=== PATIENT | female | born 1955 | race Two or more races ===

== ENCOUNTER 2018-06-25 09:29 | Inpatient (IN) | payer MEDICAID ==
[~2018-06-25] VITALS: Ht 165.1 cm; Wt 98.9 kg
[2018-06-25] MEDS ORDERED: Meclizine 25mg tab ORAL ONE (09:45)
[2018-06-25 09:53] VITALS: BP 180/100
[2018-06-25 10:04] LABS: ANION GAP 7 mmol/L (5-15); BLOOD UREA NITROGEN 23 mg/dL (7-18); CALCIUM 9.1 MG/DL (8.5-10.1); CARBON DIOXIDE 23 MMOL/L (21-32); CHLORIDE 105 MMOL/L (98-107); CREATININE 0.7 MG/DL (0.55-1.30); POTASSIUM 4.4 MMOL/L (3.5-5.1); SODIUM 135 MMOL/L (136-145)
[2018-06-25 10:11] LABS: ALANINE AMINOTRANSFERASE 47 U/L (12-78); ALBUMIN/GLOBULIN RATIO 0.7 (1.0-2.7); ALKALINE PHOSPHATASE 201 U/L (46-116); ASPARTATE AMINO TRANSFERASE 50 U/L (15-37); BILIRUBIN,TOTAL 0.8 MG/DL (0.2-1.0)
[2018-06-25 10:18] LABS: HEMATOCRIT 36.9 % (37.0-47.0); HEMOGLOBIN 11.7 G/DL (12.0-16.0); MEAN CORPUSCULAR VOLUME 84 FL (80-99); PLATELET COUNT 203 K/UL (150-450); RED BLOOD COUNT 4.39 M/UL (4.20-5.40); RED CELL DISTRIBUTION WIDTH 16.4 % (11.6-14.8); WHITE BLOOD COUNT 9.8 K/UL (4.8-10.8)
[2018-06-25 10:21] LABS: APPEARANCE,URINE CLEAR; BILIRUBIN, URINE NEGATIVE (NEGATIVE); COLOR,URINE PALE YELLOW; GLUCOSE, URINE (UA) 4+ (NEGATIVE); KETONES,URINE 3+ (NEGATIVE); LEUKOCYTE ESTERASE ,URINE NEGATIVE (NEGATIVE); NITRITE,URINE NEGATIVE (NEGATIVE); PH,URINE 6.5 (4.5-8.0); PROTEIN,URINE 1+ (NEGATIVE); UROBILINOGEN,URINE NORMAL MG/DL (0.0-1.0)
[2018-06-25 12:05] LABS: INR 1.2 (0.9-1.1)
[2018-06-25 12:19] VITALS: BP 122/53
[2018-06-25 12:40] VITALS: BP 124/60
[2018-06-25 13:50] VITALS: BP 135/59
--- NOTE | 2018-06-25 14:15 | Emergency Room Report ---
History of Present Illness General Chief Complaint: General Complaint Source: Patient Present Illness HPI Patient is a 62-year-old female presented after increased abdominal discomfort as well as dizziness. Patient prior history of diabetes. She reported having increased burning sensation to her upper abdomen. She reported had some increased coffee-ground emesis. The patient reported feeling somewhat lightheaded. The patient had not been having any diarrhea. Allergies: Coded Allergies: PENICILLINS (Unverified Allergy, Unknown, 06/25/18) Uncoded Allergies: pcn (Allergy, Unknown, 06/25/18) Patient History Past Medical History: see triage record Reviewed Nursing Documentation: PMH: Agreed; PSxH: Agreed Nursing Documentation-PMH Hx Diabetes: Yes Review of Systems All Other Systems: negative except mentioned in HPI Physical Exam Vital Signs Date Time Temp Pulse Resp B/P (MAP) Pulse Ox O2 Delivery O2 Flow Rate FiO2 06/25/18 09:36 97.8 98 16 180/100 98 Room Air 97.9 Sp02 EP Interpretation: reviewed, normal General Appearance: normal inspection, well appearing, no apparent distress, alert Head: atraumatic ENT: normal ENT inspection, hearing grossly normal, normal voice Neck: normal inspection, full range of motion, supple, no bony tend Respiratory: normal inspection, lungs clear, normal breath sounds, no respiratory distress, no retraction, no wheezing Cardiovascular #1: regular rate, rhythm, no edema Gastrointestinal: normal inspection, normal bowel sounds, non tender, soft, no guarding, no hernia Genitourinary: no CVA tenderness Musculoskeletal: normal inspection, back normal, normal range of motion Neurologic: normal inspection, alert, responsive, speech normal Psychiatric: normal inspection, judgement/insight normal, mood/affect normal Skin: normal inspection, normal color, no rash Medical Decision Making Diagnostic Impression: Primary Impression: Coffee ground emesis Additional Impressions: Dehydration GI bleed ER Course Patient presented for abdominal pain. Differential diagnoses included ischemic bowel, appendicitis, perforated viscus, abdominal aortic aneurysm, inferior myocardial infarction, viral gastroenteritis Because of complexity of patient's case laboratory testing and imaging studies were ordered. Laboratory testing showed evidence of anemia as well as elevated BUN/creatinine consistent with patient's recent upper GI bleeding. Patient started on IV fluids as well as IV acid blockers. Dr. Isabel Trejo was contacted for inpatient management due to panel physician Labs Test 06/25/18 09:40 06/25/18 10:05 06/25/18 11:28 White Blood Count 9.8 K/UL (4.8-10.8) Red Blood Count 4.39 M/UL (4.20-5.40) Hemoglobin 11.7 G/DL (12.0-16.0) Hematocrit 36.9 % (37.0-47.0) Mean Corpuscular Volume 84 FL (80-99) Mean Corpuscular Hemoglobin 26.6 PG (27.0-31.0) Mean Corpuscular Hemoglobin Concent 31.6 G/DL (32.0-36.0) Red Cell Distribution Width 16.4 % (11.6-14.8) Platelet Count 203 K/UL (150-450) Mean Platelet Volume 8.3 FL (6.5-10.1) Neutrophils (%) (Auto) % (45.0-75.0) Lymphocytes (%) (Auto) % (20.0-45.0) Monocytes (%) (Auto) % (1.0-10.0) Eosinophils (%) (Auto) % (0.0-3.0) Basophils (%) (Auto) % (0.0-2.0) Differential Total Cells Counted 100 Neutrophils % (Manual) 78 % (45-75) Lymphocytes % (Manual) 16 % (20-45) Monocytes % (Manual) 5 % (1-10) Eosinophils % (Manual) 1 % (0-3) Basophils % (Manual) 0 % (0-2) Band Neutrophils 0 % (0-8) Platelet Estimate Adequate Platelet Morphology Normal Red Blood Cell Morphology Normal Sodium Level 135 MMOL/L (136-145) Potassium Level 4.4 MMOL/L (3.5-5.1) Chloride Level 105 MMOL/L (98-107) Carbon Dioxide Level 23 MMOL/L (21-32) Anion Gap 7 mmol/L (5-15) Blood Urea Nitrogen 23 mg/dL (7-18) Creatinine 0.7 MG/DL (0.55-1.30) Estimat Glomerular Filtration Rate > 60 mL/min (>60) Glucose Level 294 MG/DL (74-106) Calcium Level 9.1 MG/DL (8.5-10.1) Total Bilirubin 0.8 MG/DL (0.2-1.0) Aspartate Amino Transf (AST/SGOT) 50 U/L (15-37) Alanine Aminotransferase (ALT/SGPT) 47 U/L (12-78) Alkaline Phosphatase 201 U/L (46-116) Troponin I 0.000 ng/mL (0.000-0.056) Total Protein 7.2 G/DL (6.4-8.2) Albumin 3.0 G/DL (3.4-5.0) Globulin 4.2 g/dL Albumin/Globulin Ratio 0.7 (1.0-2.7) Lipase 442 U/L (73-393) Urine Color Pale yellow Urine Appearance Clear Urine pH 6.5 (4.5-8.0) Urine Specific [place] 1.015 (1.005-1.035) Urine Protein 1+ (NEGATIVE) Urine Glucose (UA) 4+ (NEGATIVE) Urine Ketones 3+ (NEGATIVE) Urine Occult Blood 2+ (NEGATIVE) Urine Nitrite Negative (NEGATIVE) Urine Bilirubin Negative (NEGATIVE) Urine Urobilinogen Normal MG/DL (0.0-1.0) Urine Leukocyte Esterase Negative (NEGATIVE) Urine RBC 2-4 /HPF (0 - 2) Urine WBC 0-2 /HPF (0 - 2) Urine Squamous Epithelial Cells Moderate /LPF (NONE/OCC) Urine Bacteria Occasional /HPF (NONE) Prothrombin Time 12.3 SEC (9.30-11.50) Prothromb Time International Ratio 1.2 (0.9-1.1) Activated Partial Thromboplast Time 28 SEC (23-33) Last Vital Signs Date Time Temp Pulse Resp B/P (MAP) Pulse Ox O2 Delivery O2 Flow Rate FiO2 06/25/18 13:37 Room Air 06/25/18 12:40 98.4 93 20 124/60 96 98.4 Status: unchanged Disposition: ADMITTED INPATIENT Condition: Serious Referrals: NOT CHOSEN IPA/,REFERRING (PCP) Luciano Edmonds MD Jun 25, 2018 14:15
[2018-06-25] MEDS ORDERED: Acetaminophen 500mg (ES) tab ORAL PRN (15:00)
[2018-06-25 20:45] VITALS: BP 107/58
[2018-06-25] MEDS ORDERED: Pantoprazole Inj IVP SCH (22:15)
[2018-06-25 22:20] LABS: BASOPHILS % (AUTO) 0.9 % (0.0-2.0); EOSINOPHILS % (AUTO) 0.2 % (0.0-3.0); HEMATOCRIT 27.8 % (37.0-47.0); HEMOGLOBIN 8.9 G/DL (12.0-16.0); LYMPHOCYTES % (AUTO) 24.9 % (20.0-45.0); MEAN CORPUSCULAR VOLUME 84 FL (80-99); MONOCYTES % (AUTO) 9.7 % (1.0-10.0); NEUTROPHILS % (AUTO) 64.2 % (45.0-75.0); PLATELET COUNT 193 K/UL (150-450); RED CELL DISTRIBUTION WIDTH 16.2 % (11.6-14.8); WHITE BLOOD COUNT 15.4 K/UL (4.8-10.8)
[2018-06-25] MEDS ORDERED: Metoclopramide 10mg/2ml Inj IVP SCH (22:30)
[2018-06-25 22:40] VITALS: BP 90/72
[2018-06-26] VITALS (15 sets, daily range): BP systolic 99–139; BP diastolic 42–88
[2018-06-26] MEDS: Pantoprazole Inj IVP SCH ×3 (00:27→21:28)
[2018-06-26] MEDS: Acetaminophen 500mg (ES) tab ORAL PRN (02:43)
[2018-06-26 03:39] LABS: BASOPHILS % (AUTO) 0.5 % (0.0-2.0); HEMATOCRIT 26.2 % (37.0-47.0); HEMOGLOBIN 8.3 G/DL (12.0-16.0); LYMPHOCYTES % (AUTO) 23.4 % (20.0-45.0); MEAN CORPUSCULAR VOLUME 84 FL (80-99); MONOCYTES % (AUTO) 8.6 % (1.0-10.0); NEUTROPHILS % (AUTO) 67.5 % (45.0-75.0); PLATELET COUNT 194 K/UL (150-450); RED BLOOD COUNT 3.14 M/UL (4.20-5.40); RED CELL DISTRIBUTION WIDTH 16.3 % (11.6-14.8); WHITE BLOOD COUNT 15.8 K/UL (4.8-10.8)
[2018-06-26 03:53] LABS: ALANINE AMINOTRANSFERASE 37 U/L (12-78); ALBUMIN 2.3 G/DL (3.4-5.0); ALBUMIN/GLOBULIN RATIO 0.7 (1.0-2.7); ALKALINE PHOSPHATASE 112 U/L (46-116); ANION GAP 7 mmol/L (5-15); ASPARTATE AMINO TRANSFERASE 35 U/L (15-37); BILIRUBIN,TOTAL 0.5 MG/DL (0.2-1.0); BLOOD UREA NITROGEN 46 mg/dL (7-18); CALCIUM 7.9 MG/DL (8.5-10.1); CARBON DIOXIDE 26 MMOL/L (21-32); CHLORIDE 108 MMOL/L (98-107); CREATININE 0.8 MG/DL (0.55-1.30); POTASSIUM 4.2 MMOL/L (3.5-5.1); SODIUM 141 MMOL/L (136-145)
[2018-06-26] MEDS: Metoclopramide 10mg/2ml Inj IVP SCH ×4 (05:32→22:51)
[2018-06-26] MEDS ORDERED: METFORMIN HCL500 M1 ORAL (07:54)
[2018-06-26] MEDS ORDERED: ASPIRIN81 MG ORAL (07:54)
[2018-06-26] MEDS ORDERED: FERROUS SU325 MG/5 M PO (07:54)
[2018-06-26] MEDS ORDERED: LOSARTAN POTASS25 M1 PO (07:54)
[2018-06-26] MEDS ORDERED: GLIPIZIDE5 MG ORAL (07:56)
[2018-06-26] MEDS ORDERED: PROPRANOLOL HCL10 MG ORAL (07:56)
[2018-06-26] MEDS ORDERED: METOCLOPRAMIDE H5 M1 ORAL (07:56)
--- NOTE | 2018-06-26 08:01 | Consultation ---
History of Present Illness General Date patient seen: Jun 26, 2018 Chief Complaint: Present Illness Allergies: Coded Allergies: PENICILLINS (Unverified Allergy, Unknown, 06/25/18) Uncoded Allergies: pcn (Allergy, Unknown, 06/25/18) Medication History Scheduled Aspirin* (Aspirin*), 81 MG ORAL DAILY, (Reported) Ferrous Sulfate (Ferrous Sulfate), 325 MG PO DAILY, (Reported) Glipizide* (Glipizide*), 5 MG ORAL BIDAC, (Reported) Losartan Potassium (Losartan Potassium), 100 MG PO DAILY, (Reported) Metformin Hcl* (Metformin Hcl*), 500 MG ORAL TWICE A DAY, (Reported) Propranolol Hcl* (Inderal*), 10 MG ORAL BID, (Reported) Scheduled PRN Metoclopramide Hcl* (Metoclopramide Hcl*), 5 MG ORAL EVERY 6 HOURS PRN for Abdominal cramps, (Reported) Patient History Healthcare decision maker n/a Resuscitation status Full Code Advanced Directive on File No Physical Exam Last 24 Hour Vital Signs Date Time Temp Pulse Resp B/P (MAP) Pulse Ox O2 Delivery O2 Flow Rate FiO2 06/26/18 04:00 98.4 103 25 108/51 (70) 94 98.4 103 06/26/18 04:00 Room Air 06/26/18 04:00 99 06/26/18 03:32 139/49 (79) 06/26/18 00:23 100 06/26/18 00:00 98.1 97 21 99/66 (77) 95 98.1 97 06/25/18 22:40 98.1 98 24 90/72 (78) 93 98.1 98 06/25/18 22:05 100.1 06/25/18 21:00 Room Air 06/25/18 20:45 100.1 96 19 107/58 (74) 98 100.1 96 06/25/18 13:50 99.4 61 22 135/59 (84) 97 99.4 61 06/25/18 13:37 Room Air 06/25/18 13:00 98.4 93 20 124/60 96 Room Air 98.4 06/25/18 12:40 98.4 93 20 124/60 96 Room Air 98.4 06/25/18 12:19 97.9 100 22 122/53 96 Room Air 97.9 06/25/18 09:53 97.9 98 16 180/100 98 Room Air 97.9 06/25/18 09:36 97.8 98 16 180/100 98 Room Air 97.9 Intake and Output 06/25/18 06/26/18 19:00 07:00 Intake Total 750 ml Output Total 0 ml 350 ml Balance 0 ml 400 ml Intake IV Total 750 ml Output Urine Total 0 ml 350 ml Laboratory Tests Test 06/25/18 09:40 06/25/18 10:05 06/25/18 11:28 06/25/18 22:13 White Blood Count 9.8 K/UL (4.8-10.8) 15.4 K/UL (4.8-10.8) #H Red Blood Count 4.39 M/UL (4.20-5.40) 3.30 M/UL (4.20-5.40) L Hemoglobin 11.7 G/DL (12.0-16.0) L 8.9 G/DL (12.0-16.0) L Hematocrit 36.9 % (37.0-47.0) L 27.8 % (37.0-47.0) L Mean Corpuscular Volume 84 FL (80-99) 84 FL (80-99) Mean Corpuscular Hemoglobin 26.6 PG (27.0-31.0) L 27.0 PG (27.0-31.0) Mean Corpuscular Hemoglobin Concent 31.6 G/DL (32.0-36.0) L 32.0 G/DL (32.0-36.0) Red Cell Distribution Width 16.4 % (11.6-14.8) H 16.2 % (11.6-14.8) H Platelet Count 203 K/UL (150-450) 193 K/UL (150-450) Mean Platelet Volume 8.3 FL (6.5-10.1) 7.2 FL (6.5-10.1) Neutrophils (%) (Auto) % (45.0-75.0) 64.2 % (45.0-75.0) Lymphocytes (%) (Auto) % (20.0-45.0) 24.9 % (20.0-45.0) Monocytes (%) (Auto) % (1.0-10.0) 9.7 % (1.0-10.0) Eosinophils (%) (Auto) % (0.0-3.0) 0.2 % (0.0-3.0) Basophils (%) (Auto) % (0.0-2.0) 0.9 % (0.0-2.0) Differential Total Cells Counted 100 Neutrophils % (Manual) 78 % (45-75) H Lymphocytes % (Manual) 16 % (20-45) L Monocytes % (Manual) 5 % (1-10) Eosinophils % (Manual) 1 % (0-3) Basophils % (Manual) 0 % (0-2) Band Neutrophils 0 % (0-8) Platelet Estimate Adequate Platelet Morphology Normal Red Blood Cell Morphology Normal Sodium Level 135 MMOL/L (136-145) L Potassium Level 4.4 MMOL/L (3.5-5.1) Chloride Level 105 MMOL/L (98-107) Carbon Dioxide Level 23 MMOL/L (21-32) Anion Gap 7 mmol/L (5-15) Blood Urea Nitrogen 23 mg/dL (7-18) H Creatinine 0.7 MG/DL (0.55-1.30) Estimat Glomerular Filtration Rate > 60 mL/min (>60) Glucose Level 294 MG/DL (74-106) H Calcium Level 9.1 MG/DL (8.5-10.1) Total Bilirubin 0.8 MG/DL (0.2-1.0) Aspartate Amino Transf (AST/SGOT) 50 U/L (15-37) H Alanine Aminotransferase (ALT/SGPT) 47 U/L (12-78) Alkaline Phosphatase 201 U/L (46-116) H Troponin I 0.000 ng/mL (0.000-0.056) Total Protein 7.2 G/DL (6.4-8.2) Albumin 3.0 G/DL (3.4-5.0) L Globulin 4.2 g/dL Albumin/Globulin Ratio 0.7 (1.0-2.7) L Lipase 442 U/L (73-393) H Urine Color Pale yellow Urine Appearance Clear Urine pH 6.5 (4.5-8.0) Urine Specific [place] 1.015 (1.005-1.035) Urine Protein 1+ (NEGATIVE) H Urine Glucose (UA) 4+ (NEGATIVE) H Urine Ketones 3+ (NEGATIVE) H Urine Occult Blood 2+ (NEGATIVE) H Urine Nitrite Negative (NEGATIVE) Urine Bilirubin Negative (NEGATIVE) Urine Urobilinogen Normal MG/DL (0.0-1.0) Urine Leukocyte Esterase Negative (NEGATIVE) Urine RBC 2-4 /HPF (0 - 2) H Urine WBC 0-2 /HPF (0 - 2) Urine Squamous Epithelial Cells Moderate /LPF (NONE/OCC) H Urine Bacteria Occasional /HPF (NONE) Prothrombin Time 12.3 SEC (9.30-11.50) H Prothromb Time International Ratio 1.2 (0.9-1.1) H Activated Partial Thromboplast Time 28 SEC (23-33) Test 06/26/18 03:30 White Blood Count 15.8 K/UL (4.8-10.8) H Red Blood Count 3.14 M/UL (4.20-5.40) L Hemoglobin 8.3 G/DL (12.0-16.0) L Hematocrit 26.2 % (37.0-47.0) L Mean Corpuscular Volume 84 FL (80-99) Mean Corpuscular Hemoglobin 26.5 PG (27.0-31.0) L Mean Corpuscular Hemoglobin Concent 31.7 G/DL (32.0-36.0) L Red Cell Distribution Width 16.3 % (11.6-14.8) H Platelet Count 194 K/UL (150-450) Mean Platelet Volume 7.2 FL (6.5-10.1) Neutrophils (%) (Auto) 67.5 % (45.0-75.0) Lymphocytes (%) (Auto) 23.4 % (20.0-45.0) Monocytes (%) (Auto) 8.6 % (1.0-10.0) Eosinophils (%) (Auto) 0.0 % (0.0-3.0) Basophils (%) (Auto) 0.5 % (0.0-2.0) Sodium Level 141 MMOL/L (136-145) Potassium Level 4.2 MMOL/L (3.5-5.1) Chloride Level 108 MMOL/L (98-107) H Carbon Dioxide Level 26 MMOL/L (21-32) Anion Gap 7 mmol/L (5-15) Blood Urea Nitrogen 46 mg/dL (7-18) H Creatinine 0.8 MG/DL (0.55-1.30) Estimat Glomerular Filtration Rate > 60 mL/min (>60) Glucose Level 255 MG/DL (74-106) H Calcium Level 7.9 MG/DL (8.5-10.1) L Total Bilirubin 0.5 MG/DL (0.2-1.0) Aspartate Amino Transf (AST/SGOT) 35 U/L (15-37) Alanine Aminotransferase (ALT/SGPT) 37 U/L (12-78) Alkaline Phosphatase 112 U/L (46-116) Total Protein 5.7 G/DL (6.4-8.2) L Albumin 2.3 G/DL (3.4-5.0) L Globulin 3.4 g/dL Albumin/Globulin Ratio 0.7 (1.0-2.7) L Lipase 158 U/L (73-393) Height (Feet): 5 Height (Inches): 5.00 Weight (Pounds): 218 Medications Current Medications Medications (Trade) Dose Ordered Sig/Sushila Route PRN Reason Start Time Stop Time Status Last Admin Dose Admin Acetaminophen (Tylenol) 500 mg Q4H PRN ORAL Mild Pain/Temp > 100.5 06/26/18 03:00 07/25/18 14:59 06/26/18 02:43 Clonidine HCl (Catapres Tab) 0.1 mg Q6H PRN ORAL For High Blood Pressure 06/26/18 03:00 07/25/18 14:59 Dextrose (Dextrose 50%) 50 ml STAT PRN IV hypoglycemia 06/26/18 06:00 07/25/18 14:59 Metoclopramide HCl (Reglan) 10 mg Q6H IVP 06/26/18 04:30 07/25/18 22:29 06/26/18 05:32 Ondansetron HCl (Zofran) 4 mg Q6H PRN IVP Nausea & Vomiting 06/26/18 03:00 07/25/18 14:59 Pantoprazole (Protonix) 40 mg EVERY 12 HOURS IVP 06/26/18 00:15 07/26/18 00:14 06/26/18 00:27 Sodium Chloride 1,000 ml @ 125 mls/hr Q8H IV 06/25/18 23:15 07/25/18 22:14 06/26/18 00:00 Assessment/Plan Assessment/Plan (1) Abdominal pain (2) GI bleed seen dictated Joao Baldwin Jun 26, 2018 08:01
[2018-06-26] MEDS ORDERED: Midazolam 2mg/2ml Inj IVP PRN (08:30)
[2018-06-26] MEDS ORDERED: DiphenhydrAMINE 50mg/ml Inj IVP PRN (08:30)
[2018-06-26] MEDS ORDERED: Atropine Inj 1mg/10ml Syr IV PRN (08:30)
[2018-06-26] MEDS ORDERED: fentaNYL 100 mcg/2 mL IV PRN (08:30)
--- NOTE | 2018-06-26 08:31 | Anethesia Preoperative Eval ---
Anesthesia Pre-op PMH/ROS General Date of Evaluation: Jun 26, 2018 Time of Evaluation: 08:23 Anesthesiologist: jalen ASA Score: ASA 3 Mallampati Score Class I : Soft palate, uvula, fauces, pillars visible Class II: Soft palate, uvula, fauces visible Class III: Soft palate, base of uvula visible Class IV: Only hard plate visible Mallampati Classification: Class II Surgeon: zarina Diagnosis: gi bleed, anemia Surgical Procedure: egd Anesthesia History: none Social History: smoking - nonsmoker Family History: no anesthesia problems Allergies: Coded Allergies: PENICILLINS (Unverified Allergy, Unknown, 06/25/18) Uncoded Allergies: pcn (Allergy, Unknown, 06/25/18) Medications: see eMAR Past Medical History Cardiovascular: Reports: HTN Pulmonary: Reports: other - pneumonia Gastrointestinal/Genitourinary: Reports: other - gibleed, hematemesis Endocrine: Reports: DM Hematology/Immune: Reports: anemia Other: obesity Anesthesia Pre-op Phys. Exam Physician Exam Last Vital Signs Date Time Temp Pulse Resp B/P (MAP) Pulse Ox O2 Delivery O2 Flow Rate FiO2 06/26/18 08:06 100 06/26/18 08:00 98.2 22 103/42 (62) 97 98.2 06/26/18 08:00 Room Air Constitutional: NAD Neurologic: CN 2-12 intact Cardiovascular: RRR, other - meena Respiratory: CTA Gastrointestinal: S/NT/ND Airway Exam Mallampati Score: Class II MO: limited Neck: short TMD: 2fb ROM: limited Teeth: missing Anesthesia Pre-op A/P Labs Hematology Test 06/25/18 09:40 06/25/18 22:13 06/26/18 03:30 White Blood Count 9.8 K/UL (4.8-10.8) 15.4 K/UL (4.8-10.8) #H 15.8 K/UL (4.8-10.8) H Red Blood Count 4.39 M/UL (4.20-5.40) 3.30 M/UL (4.20-5.40) L 3.14 M/UL (4.20-5.40) L Hemoglobin 11.7 G/DL (12.0-16.0) L 8.9 G/DL (12.0-16.0) L 8.3 G/DL (12.0-16.0) L Hematocrit 36.9 % (37.0-47.0) L 27.8 % (37.0-47.0) L 26.2 % (37.0-47.0) L Mean Corpuscular Volume 84 FL (80-99) 84 FL (80-99) 84 FL (80-99) Mean Corpuscular Hemoglobin 26.6 PG (27.0-31.0) L 27.0 PG (27.0-31.0) 26.5 PG (27.0-31.0) L Mean Corpuscular Hemoglobin Concent 31.6 G/DL (32.0-36.0) L 32.0 G/DL (32.0-36.0) 31.7 G/DL (32.0-36.0) L Red Cell Distribution Width 16.4 % (11.6-14.8) H 16.2 % (11.6-14.8) H 16.3 % (11.6-14.8) H Platelet Count 203 K/UL (150-450) 193 K/UL (150-450) 194 K/UL (150-450) Mean Platelet Volume 8.3 FL (6.5-10.1) 7.2 FL (6.5-10.1) 7.2 FL (6.5-10.1) Neutrophils (%) (Auto) % (45.0-75.0) 64.2 % (45.0-75.0) 67.5 % (45.0-75.0) Lymphocytes (%) (Auto) % (20.0-45.0) 24.9 % (20.0-45.0) 23.4 % (20.0-45.0) Monocytes (%) (Auto) % (1.0-10.0) 9.7 % (1.0-10.0) 8.6 % (1.0-10.0) Eosinophils (%) (Auto) % (0.0-3.0) 0.2 % (0.0-3.0) 0.0 % (0.0-3.0) Basophils (%) (Auto) % (0.0-2.0) 0.9 % (0.0-2.0) 0.5 % (0.0-2.0) Differential Total Cells Counted 100 Neutrophils % (Manual) 78 % (45-75) H Lymphocytes % (Manual) 16 % (20-45) L Monocytes % (Manual) 5 % (1-10) Eosinophils % (Manual) 1 % (0-3) Basophils % (Manual) 0 % (0-2) Band Neutrophils 0 % (0-8) Platelet Estimate Adequate Platelet Morphology Normal Red Blood Cell Morphology Normal Coagulation Test 06/25/18 11:28 Prothrombin Time 12.3 SEC (9.30-11.50) H Prothromb Time International Ratio 1.2 (0.9-1.1) H Activated Partial Thromboplast Time 28 SEC (23-33) Chemistry Test 06/25/18 09:40 06/26/18 03:30 Sodium Level 135 MMOL/L (136-145) L 141 MMOL/L (136-145) Potassium Level 4.4 MMOL/L (3.5-5.1) 4.2 MMOL/L (3.5-5.1) Chloride Level 105 MMOL/L (98-107) 108 MMOL/L (98-107) H Carbon Dioxide Level 23 MMOL/L (21-32) 26 MMOL/L (21-32) Anion Gap 7 mmol/L (5-15) 7 mmol/L (5-15) Blood Urea Nitrogen 23 mg/dL (7-18) H 46 mg/dL (7-18) H Creatinine 0.7 MG/DL (0.55-1.30) 0.8 MG/DL (0.55-1.30) Estimat Glomerular Filtration Rate > 60 mL/min (>60) > 60 mL/min (>60) Glucose Level 294 MG/DL (74-106) H 255 MG/DL (74-106) H Calcium Level 9.1 MG/DL (8.5-10.1) 7.9 MG/DL (8.5-10.1) L Total Bilirubin 0.8 MG/DL (0.2-1.0) 0.5 MG/DL (0.2-1.0) Aspartate Amino Transf (AST/SGOT) 50 U/L (15-37) H 35 U/L (15-37) Alanine Aminotransferase (ALT/SGPT) 47 U/L (12-78) 37 U/L (12-78) Alkaline Phosphatase 201 U/L (46-116) H 112 U/L (46-116) Troponin I 0.000 ng/mL (0.000-0.056) Total Protein 7.2 G/DL (6.4-8.2) 5.7 G/DL (6.4-8.2) L Albumin 3.0 G/DL (3.4-5.0) L 2.3 G/DL (3.4-5.0) L Globulin 4.2 g/dL 3.4 g/dL Albumin/Globulin Ratio 0.7 (1.0-2.7) L 0.7 (1.0-2.7) L Lipase 442 U/L (73-393) H 158 U/L (73-393) Risk Assessment & Plan Assessment: [email or web address] Plan: mac Status Change Before Surgery: No Pre-Antibiotics Drug: Parisa Braden MD Jun 26, 2018 08:31
[2018-06-26] MEDS ORDERED: Pantoprazole Inj IVP SCH (09:00)
--- NOTE | 2018-06-26 09:32 | Diagnostic Imaging Report ---
Clinical Indication: Abdominal pain, nausea, vomiting Technique: No oral contrast utilized, per emergency room physician request IV administration nonionic contrast. Venous phase spiral acquisition obtained through the abdomen and pelvis. Multiplanar reconstructions were generated. Total dose length product 1005.68 mGycm. CTDIvol(s) 18.4 mGy. Dose reduction achieved using automated exposure control Comparison: none Findings: The appendix is normal. There is equivocal mild wall thickening of the ascending colon. There are scattered distal colonic diverticula. No evidence of diverticulitis. There is suggestion of mild wall thickening of the gastric antrum. There is also suggestion of wall thickening of the proximal small bowel. There is a small fat-containing umbilical hernia. The liver demonstrates equivocal slight surface irregularity. The gallbladder demonstrates a very edematous wall, but it is nondistended and there are no radiopaque gallstones. No biliary ductal dilatation. The pancreas, spleen, adrenals, left kidney are unremarkable. Right kidney demonstrates a subcentimeter low-attenuation lesion in the lower pole. No retroperitoneal or mesenteric mass or adenopathy. No pelvic mass or adenopathy. The uterus is absent. The ovaries are unremarkable. The included lung bases are clear. The bones are unremarkable. Impression: Suggestion of wall thickening of the gastric antrum, proximal small bowel, and ascending colon, suspicious for gastroenterocolitis Edematous gallbladder wall, without evidence of gallstones or gallbladder distention. Significance uncertain, could indicate reactive edema secondary to adjacent hepatocellular disease, versus acalculous acute cholecystitis or acute cholecystitis secondary to CT-occult calculi. Consider ultrasound and/or hepatobiliary nuclear scan if there is high clinical suspicion Equivocal slight hepatic surface irregularity, could indicate early cirrhotic changes Subcentimeter right lower pole renal lesion, too small to characterize, most likely benign simple cortical cysts. No further follow-up necessary Other findings as noted, including surgical absence of the uterus, small fat-containing umbilical hernia This agrees with the preliminary interpretation provided overnight by [facility] teleradiology service. The CT scanner at [facility] is accredited by the [employer] and the scans are performed using protocols designed to limit radiation exposure to as low as reasonably achievable to attain images of sufficient resolution adequate for diagnostic evaluation.
[2018-06-26] MEDS ORDERED: Propofol 200mg/20ml IV ONE ×2 (10:00)
[2018-06-26] MEDS ORDERED: Lidocaine 1% MPF 10mg/ml 5ml ONE (10:00)
[2018-06-26] MEDS ORDERED: NS 500ML IVPB ONE (10:30)
--- NOTE | 2018-06-26 10:30 | General Progress Note ---
Assessment/Plan Assessment/Plan GI CONSULT Dictation to follow Lexa Deras Subjective Allergies: Coded Allergies: PENICILLINS (Unverified Allergy, Unknown, 06/25/18) Uncoded Allergies: pcn (Allergy, Unknown, 06/25/18) Objective Last 24 Hour Vital Signs Date Time Temp Pulse Resp B/P (MAP) Pulse Ox O2 Delivery O2 Flow Rate FiO2 06/26/18 08:06 100 06/26/18 08:00 98.2 94 22 103/42 (62) 97 98.2 94 06/26/18 08:00 Room Air 06/26/18 04:00 98.4 103 25 108/51 (70) 94 98.4 103 06/26/18 04:00 Room Air 06/26/18 04:00 99 06/26/18 03:32 139/49 (79) 06/26/18 00:23 100 06/26/18 00:00 98.1 97 21 99/66 (77) 95 98.1 97 06/25/18 22:40 98.1 98 24 90/72 (78) 93 98.1 98 06/25/18 22:05 100.1 06/25/18 21:00 Room Air 06/25/18 20:45 100.1 96 19 107/58 (74) 98 100.1 96 06/25/18 13:50 99.4 61 22 135/59 (84) 97 99.4 61 06/25/18 13:37 Room Air 06/25/18 13:00 98.4 93 20 124/60 96 Room Air 98.4 06/25/18 12:40 98.4 93 20 124/60 96 Room Air 98.4 06/25/18 12:19 97.9 100 22 122/53 96 Room Air 97.9 Intake and Output 06/25/18 06/26/18 19:00 07:00 Intake Total 875 ml Output Total 0 ml 350 ml Balance 0 ml 525 ml Intake IV Total 875 ml Output Urine Total 0 ml 350 ml Laboratory Tests 06/25/18 11:28: Prothrombin Time 12.3H, Prothromb Time International Ratio 1.2H, Activated Partial Thromboplast Time 28 06/25/18 22:13: White Blood Count 15.4#H, Red Blood Count 3.30L, Hemoglobin 8.9L, Hematocrit 27.8L, Mean Corpuscular Volume 84, Mean Corpuscular Hemoglobin 27.0, Mean Corpuscular Hemoglobin Concent 32.0, Red Cell Distribution Width 16.2H, Platelet Count 193, Mean Platelet Volume 7.2, Neutrophils (%) (Auto) 64.2, Lymphocytes (%) (Auto) 24.9, Monocytes (%) (Auto) 9.7, Eosinophils (%) (Auto) 0.2, Basophils (%) (Auto) 0.9 06/26/18 03:30: White Blood Count 15.8H, Red Blood Count 3.14L, Hemoglobin 8.3L, Hematocrit 26.2L, Mean Corpuscular Volume 84, Mean Corpuscular Hemoglobin 26.5L, Mean Corpuscular Hemoglobin Concent 31.7L, Red Cell Distribution Width 16.3H, Platelet Count 194, Mean Platelet Volume 7.2, Neutrophils (%) (Auto) 67.5, Lymphocytes (%) (Auto) 23.4, Monocytes (%) (Auto) 8.6, Eosinophils (%) (Auto) 0.0, Basophils (%) (Auto) 0.5, Sodium Level 141, Potassium Level 4.2, Chloride Level 108H, Carbon Dioxide Level 26, Anion Gap 7, Blood Urea Nitrogen 46H, Creatinine 0.8, Estimat Glomerular Filtration Rate > 60, Glucose Level 255H, Calcium Level 7.9L, Total Bilirubin 0.5, Aspartate Amino Transf (AST/SGOT) 35, Alanine Aminotransferase (ALT/SGPT) 37, Alkaline Phosphatase 112, Total Protein 5.7L, Albumin 2.3L, Globulin 3.4, Albumin/Globulin Ratio 0.7L, Lipase 158 Height (Feet): 5 Height (Inches): 5.00 Weight (Pounds): 218 Ct Deras MD Jun 26, 2018 10:30
--- NOTE | 2018-06-26 10:30 | Pre-Procedure Note/Attestation ---
Pre-Procedure Note/Attestation Complete Prior to Procedure Planned Procedure: not applicable Procedure Narrative: egd Indications for Procedure Pre-Operative Diagnosis: GIB Attestation I attest that I discussed the nature of the procedure; its benefits; risks and complications; and alternatives (and the risks and benefits of such alternatives ), prior to the procedure, with the patient (or the patient's legal patient intake representative). I attest that, if there was a reasonable possibility of needing a blood transfusion, the patient (or the patient's legal patient intake representative) was given the [facility] standardized written summary, pursuant to the [place] Blood Safety Act ([place] Health and Safety Code # 1645, as amended). I attest that I re-evaluated the patient just prior to the surgery and that there has been no change in the patient's H&P, except as documented below: Ct Deras MD Jun 26, 2018 10:30
--- NOTE | 2018-06-26 11:57 | Immediate Post-Op Evaluation ---
Immediate Post-Op Evalulation Immediate Post-Op Evalulation Procedure: egd w/banding Date of Evaluation: Jun 26, 2018 Time of Evaluation: 11:10 IV Fluids: 200ml 0.9ns Blood Products: none Estimated Blood Loss: negligible Blood Pressure Systolic: 114 Blood Pressure Diastolic: 80 Pulse Rate: 94 Respiratory Rate: 18 O2 Sat by Pulse Oximetry: 100 Temperature (Fahrenheit): 97.0 Pain Score (1-10): 0 Nausea: No Vomiting: No Complications none Patient Status: awake, reacts, patent Hydration Status: adequate Drug: Parisa Braden MD Jun 26, 2018 11:57
--- NOTE | 2018-06-26 11:58 | 48 Hour Post Anesthesia Eval ---
Post Anesthesia Evaluation Procedure: egd w/banding Date of Evaluation: Jun 26, 2018 Time of Evaluation: 11:12 Blood Pressure Systolic: 120 0: 80 Pulse Rate: 94 Respiratory Rate: 18 Temperature (Fahrenheit): 97.0 O2 Sat by Pulse Oximetry: 99 Airway: patent Nausea: No Vomiting: No Pain Intensity: 0 Hydration Status: adequate Cardiopulmonary Status: stable Mental Status/LOC: patient returned to baseline Post-Anesthesia Complications: none Follow-up care needed: N/A Parisa Kunz MD Jun 26, 2018 11:58
[2018-06-26] MEDS ORDERED: SandoSTATIN 50mcg Inj IVP SCH (12:00)
[2018-06-26] MEDS: Octreotide Acetate 500 MCG in Sodium Chloride 500ML 499 ML IV SCH (12:24)
--- NOTE | 2018-06-26 13:09 | Consultation ---
Consult Note Consult Note asked to eval for Azotemia Patient is a 62-year-old female presented after increased abdominal discomfort as well as dizziness. Patient prior history of diabetes. She reported having increased burning sensation to her upper abdomen. She reported had some increased coffee-ground emesis. The patient reported feeling somewhat lightheaded. The patient had not been having any diarrhea. Allergies: PENICILLINS (Unverified Allergy, Unknown, 06/25/18) Hx Diabetes: Yes Obese Assessment/Plan GI bleed due to varices/ had endoscopy and banding Anemia Dehydration / GI bleed: leading to Azotemia Hydrate- Monitor H&H Monitor Renal parameters Per orders Per GI Ryley Guadalupe MD Jun 26, 2018 13:09
--- NOTE | 2018-06-26 19:45 | Consultation ---
DATE OF CONSULTATION: 06/26/2018 INFECTIOUS DISEASE CONSULTATION CONSULTING PHYSICIAN: Ignacio Damico M.D. PRIMARY ATTENDING PHYSICIAN: Isabel Miller M.D. REASON FOR CONSULT: Gastroenteritis. HISTORY OF PRESENT ILLNESS: This is a 62-year-old female, admitted yesterday from an outside urgent care because of nausea, vomiting, and shortness of breath. She had coffee-ground vomiting. She has no diarrhea. No fever. No other symptoms. PAST MEDICAL HISTORY: Significant for diabetes type 2 and hypertension. The patient also had history of hysterectomy. MEDICATIONS: Getting IV Flagyl, diphenhydramine, Protonix, Tylenol, and gets a dose of IV Levaquin. ALLERGIES: Allergic to latex and penicillin, with penicillin develops rash. SOCIAL HISTORY: Lives at home, has 4 children. No history of alcohol, drug abuse, or smoking. REVIEW OF SYSTEMS: No fever. No chills. She have some epigastric pain and nausea. In the past week, has poor appetite. No diarrhea. No problem passing urine. No coughing. Before at home was ambulatory and had no shortness of breath on exertion. PHYSICAL EXAMINATION: GENERAL APPEARANCE: Well developed, no acute distress. Awake, alert, oriented. VITAL SIGNS: Temperature 97.3 degrees, pulse 64, and blood pressure 100/70. HEAD AND NECK: [place] conjunctivae. HEART: Normal rate, regular. LUNGS: Clear. ABDOMEN: Soft. Mildly tender in epigastric area. EXTREMITIES: She has no significant edema. LABORATORY AND DIAGNOSTIC DATA: UA showed 2+ leukocyte esterase, positive wbc's 5 to 10. Sodium 133 and sodium at the time of admission was 126, potassium 3.7, chloride 102, carbon dioxide 24, BUN 32 and creatinine of 2.1. Creatinine at the time of admission was 2.7. CK was 458. Albumin was 3. A CT scan of the abdomen and pelvis showed gastroenterocolitis. Chest x-ray was negative. IMPRESSION: 1. Gastroenterocolitis. 2. Upper GI bleeding. 3. Dehydration, acute renal failure. 4. Hyponatremia. 5. Diabetes mellitus type 2. 6. Hypertension. RECOMMENDATION: Continue with Flagyl. Because of acute renal failure, the patient does not need Levaquin until the day after tomorrow. We will follow up the cultures. At the end of my exam, I thank Dr. Miller for involving me in the care of this patient. Ignacio Damico M.D. DR: LAURA JOB#: [id number] CC:
--- NOTE | 2018-06-26 19:45 | Operative Note - Dictated ---
DATE OF OPERATION: 06/26/2018 PROCEDURE: Upper gastrointestinal endoscopy with biopsy and esophageal variceal banding. SURGEON: Ct Deras M.D. ANESTHESIA: Please see the separate anesthesiologist notes for details. PRE-ENDOSCOPIC DIAGNOSIS: Upper gastrointestinal bleeding. POST-ENDOSCOPIC DIAGNOSES: 1. Portal hypertensive gastropathy. 2. A single column of moderate-sized Quiroga's in the lower esophagus. 3. No active bleeding. No other lesions found to explain gastrointestinal bleeding. 4. Status post random biopsy of the duodenum and the antrum. 5. Status post band ligation x2, applied to the lower portion PROCEDURE: The procedure, its risks, indications, alternatives, and possible complications were explained and informed consent was obtained. The patient was then sedated in the left lateral decubitus position. A diagnostic upper endoscope was introduced into oropharynx and advanced to the duodenum. The endoscope was then gradually withdrawn and the mucosa examined carefully. Findings and procedures performed were as listed above. The patient tolerated procedure well and in good position and the patient was sent to recovery in good condition. COMPLICATIONS: None. RECOMMENDATIONS: 1. Follow up biopsy results. 2. Sandostatin drip. 3. Workup of portal hypertension. 4. Keep NPO for today. Ct Deras M.D. DR: RINA JOB#: [id number] CC: [place]
--- NOTE | 2018-06-26 21:37 | Endoscopy Procedure Note ---
Endoscopy Procedure Note General Indication for Procedure: UGIB Procedures Performed: EGD Operative Findings/Diagnosis: PHG, esophageal varix, band x 2, bx x 2 Specimen: yes Pt Tolerated Procedure Well: Yes Estimated Blood Loss: none Anesthesia Anesthesiologist: margaret freeman Anesthesia: MAC Medications Medication Given: see anesthesia record Inserted Devices Implant(s) used?: No GI Core Measures 50 yrs or older w/o bx or poly: Not Applicable 10yrs. F/U not recommended: Not Applicable If not recommended, why?: Ct Deras MD Jun 26, 2018 21:36
--- NOTE | 2018-06-26 21:38 | Brief Operative Note ---
Immediate Post Operative Note Operative Note Chief Complaint: ugib Pre-op Diagnosis: GIB Procedure: PHG, esophageal varix, band x 2, bx x 2 Post-op Diagnosis: PHG, esophageal varix, band x 2, bx x 2 Post-op Diagnosis: same as pre-op plus Surgeon: zarina Anesthesiologist: margaret freeman Anesthesia: MAC Specimen: yes Complications: none Condition: stable Fluids: given Estimated Blood Loss: none Drains: none Implant(s) used?: No Ct Deras MD Jun 26, 2018 21:38
[2018-06-26 22:56] LABS: HEMATOCRIT 22.6 % (37.0-47.0); HEMOGLOBIN 7.4 G/DL (12.0-16.0); MEAN CORPUSCULAR VOLUME 84 FL (80-99); PLATELET COUNT 173 K/UL (150-450); RED BLOOD COUNT 2.69 M/UL (4.20-5.40); RED CELL DISTRIBUTION WIDTH 16.9 % (11.6-14.8); WHITE BLOOD COUNT 13.2 K/UL (4.8-10.8)
--- NOTE | 2018-06-26 23:46 | Consultation ---
History of Present Illness General Date patient seen: Jun 26, 2018 Chief Complaint: General Complaint Reason for Consultation: GI bleeding Present Illness HPI 62 year old female presented with abdominal discomfort, nausea and coffee ground emesis. upon admission had large emesis with coffee ground as well. had endoscopy today which demonstrated varices, portal htn. surgery called to evaluate for abdominal pain. patient seen, chart reviewed, patient examined. CT scan with enteritis. labs with anemia after resuscitation. leukocytosis. currently pain improving. Allergies: Coded Allergies: PENICILLINS (Unverified Allergy, Unknown, 06/25/18) Uncoded Allergies: pcn (Allergy, Unknown, 06/25/18) Medication History Scheduled Aspirin* (Aspirin*), 81 MG ORAL DAILY, (Reported) Ferrous Sulfate (Ferrous Sulfate), 325 MG PO DAILY, (Reported) Glipizide* (Glipizide*), 5 MG ORAL BIDAC, (Reported) Losartan Potassium (Losartan Potassium), 100 MG PO DAILY, (Reported) Metformin Hcl* (Metformin Hcl*), 500 MG ORAL TWICE A DAY, (Reported) Propranolol Hcl* (Inderal*), 10 MG ORAL BID, (Reported) Scheduled PRN Metoclopramide Hcl* (Metoclopramide Hcl*), 5 MG ORAL EVERY 6 HOURS PRN for Abdominal cramps, (Reported) Patient History History Provided By: Patient, Medical Record, PMD Healthcare decision maker n/a Resuscitation status Full Code Advanced Directive on File No Past Medical/Surgical History Past Medical/Surgical History: (1) Muscle weakness (generalized) (2) Bloody emesis (3) Dehydration (4) GI bleed (5) Coffee ground emesis Review of Systems All Other Systems: negative except mentioned in HPI Physical Exam General Appearance: no apparent distress Lines, tubes and drains: peripheral HEENT: normocephalic, atraumatic, mucous membranes moist Neck: normal inspection Respiratory/Chest: normal breath sounds, no respiratory distress, no accessory muscle use Cardiovascular/Chest: normal peripheral pulses, normal rate Abdomen: normal bowel sounds, non tender, soft Extremities: normal inspection Skin Exam: warm/dry Neurologic: alert, oriented x 3 Last 24 Hour Vital Signs Date Time Temp Pulse Resp B/P (MAP) Pulse Ox O2 Delivery O2 Flow Rate FiO2 06/26/18 20:00 Room Air 06/26/18 20:00 96.1 91 18 110/54 (72) 95 96.1 06/26/18 19:55 89 06/26/18 16:00 92 06/26/18 16:00 Room Air 06/26/18 16:00 98.4 97 18 114/52 (72) 97 98.4 94 06/26/18 12:18 97 06/26/18 12:00 Room Air 06/26/18 11:58 206.6 94 18 99 06/26/18 11:57 206.6 94 18 100 06/26/18 11:35 91 23 127/59 96 Room Air 06/26/18 11:25 97 93 24 123/58 97 Room Air 97.0 06/26/18 11:20 95 28 106/63 100 Nasal Cannula 3 06/26/18 11:08 90 15 114/53 100 Nasal Cannula 3 06/26/18 11:03 94 15 110/56 100 Nasal Cannula 3 06/26/18 10:58 97 94 18 114/60 100 Simple Mask 5 97.0 06/26/18 08:06 100 06/26/18 08:00 98.2 94 22 103/42 (62) 97 98.2 94 06/26/18 08:00 Room Air 06/26/18 04:00 98.4 103 25 108/51 (70) 94 98.4 103 06/26/18 04:00 Room Air 06/26/18 04:00 99 06/26/18 03:32 139/49 (79) 06/26/18 00:23 100 06/26/18 00:00 98.1 97 21 99/66 (77) 95 98.1 97 Intake and Output 06/25/18 06/26/18 19:00 07:00 Intake Total 875 ml Output Total 0 ml 350 ml Balance 0 ml 525 ml Intake IV Total 875 ml Output Urine Total 0 ml 350 ml Laboratory Tests Test 06/26/18 03:30 06/26/18 22:47 White Blood Count 15.8 K/UL (4.8-10.8) H 13.2 K/UL (4.8-10.8) H Red Blood Count 3.14 M/UL (4.20-5.40) L 2.69 M/UL (4.20-5.40) L Hemoglobin 8.3 G/DL (12.0-16.0) L 7.4 G/DL (12.0-16.0) L Hematocrit 26.2 % (37.0-47.0) L 22.6 % (37.0-47.0) L Mean Corpuscular Volume 84 FL (80-99) 84 FL (80-99) Mean Corpuscular Hemoglobin 26.5 PG (27.0-31.0) L 27.7 PG (27.0-31.0) Mean Corpuscular Hemoglobin Concent 31.7 G/DL (32.0-36.0) L 33.0 G/DL (32.0-36.0) Red Cell Distribution Width 16.3 % (11.6-14.8) H 16.9 % (11.6-14.8) H Platelet Count 194 K/UL (150-450) 173 K/UL (150-450) Mean Platelet Volume 7.2 FL (6.5-10.1) 6.3 FL (6.5-10.1) L Neutrophils (%) (Auto) 67.5 % (45.0-75.0) % (45.0-75.0) Lymphocytes (%) (Auto) 23.4 % (20.0-45.0) % (20.0-45.0) Monocytes (%) (Auto) 8.6 % (1.0-10.0) % (1.0-10.0) Eosinophils (%) (Auto) 0.0 % (0.0-3.0) % (0.0-3.0) Basophils (%) (Auto) 0.5 % (0.0-2.0) % (0.0-2.0) Sodium Level 141 MMOL/L (136-145) Potassium Level 4.2 MMOL/L (3.5-5.1) Chloride Level 108 MMOL/L (98-107) H Carbon Dioxide Level 26 MMOL/L (21-32) Anion Gap 7 mmol/L (5-15) Blood Urea Nitrogen 46 mg/dL (7-18) H Creatinine 0.8 MG/DL (0.55-1.30) Estimat Glomerular Filtration Rate > 60 mL/min (>60) Glucose Level 255 MG/DL (74-106) H Calcium Level 7.9 MG/DL (8.5-10.1) L Total Bilirubin 0.5 MG/DL (0.2-1.0) Aspartate Amino Transf (AST/SGOT) 35 U/L (15-37) Alanine Aminotransferase (ALT/SGPT) 37 U/L (12-78) Alkaline Phosphatase 112 U/L (46-116) C-Reactive Protein, Quantitative 0.9 mg/dL (0.00-0.90) Total Protein 5.7 G/DL (6.4-8.2) L Albumin 2.3 G/DL (3.4-5.0) L Globulin 3.4 g/dL Albumin/Globulin Ratio 0.7 (1.0-2.7) L Lipase 158 U/L (73-393) Differential Total Cells Counted 100 Neutrophils % (Manual) 61 % (45-75) Lymphocytes % (Manual) 29 % (20-45) Monocytes % (Manual) 8 % (1-10) Eosinophils % (Manual) 1 % (0-3) Basophils % (Manual) 1 % (0-2) Band Neutrophils 0 % (0-8) Platelet Estimate Adequate Platelet Morphology Normal Hypochromasia 1+ Anisocytosis 1+ Height (Feet): 5 Height (Inches): 5.00 Weight (Pounds): 218 Medications Current Medications Medications (Trade) Dose Ordered Sig/Sushila Route PRN Reason Start Time Stop Time Status Last Admin Dose Admin Acetaminophen (Tylenol) 500 mg Q4H PRN ORAL Mild Pain/Temp > 100.5 06/26/18 03:00 07/25/18 14:59 06/26/18 02:43 Clonidine HCl (Catapres Tab) 0.1 mg Q6H PRN ORAL For High Blood Pressure 06/26/18 03:00 07/25/18 14:59 Dextrose (Dextrose 50%) 50 ml STAT PRN IV hypoglycemia 06/26/18 06:00 07/25/18 14:59 Metoclopramide HCl (Reglan) 10 mg Q6H IVP 06/26/18 04:30 07/25/18 22:29 06/26/18 22:51 Octreotide Acetate 500 mcg/ Sodium Chloride 500 ml @ 25 mls/hr Q20H IV 06/26/18 12:00 07/26/18 11:59 06/26/18 12:24 Pantoprazole (Protonix) 40 mg EVERY 12 HOURS IVP 06/26/18 00:15 07/26/18 00:14 06/26/18 21:28 Sodium Chloride 1,000 ml @ 75 mls/hr [id number] IV 06/26/18 13:13 07/25/18 13:12 06/26/18 14:51 Assessment/Plan Problem List: (1) Abdominal pain Assessment & Plan: abdominal discomfort likely from enteritis. CT with questionable cholecystitis abdominal ultrasound no acute surgical intervention planned. will follow with recs. ICD Codes: R10.9 - Unspecified abdominal pain SNOMED: 02881907 Qualifiers: Qualified Codes: R10.84 - Generalized abdominal pain (2) GI bleed Assessment & Plan: coffee ground emesis. EGD with portal htn, barretts. and varices. will keep npo for now trend H/H no acute surgical intervention planned work up for portal ht will follow with recs. thank you for this consultation ICD Codes: K92.2 - Gastrointestinal hemorrhage, unspecified SNOMED: [id number] Erlin Miller Jun 26, 2018 23:46
--- NOTE | 2018-06-27 01:45 | Consultation ---
DATE OF CONSULTATION: 06/26/2018 PAIN MANAGEMENT CONSULTATION CONSULTING PHYSICIAN: Ellie Garrido M.D. REFERRING PHYSICIAN: Isabel Miller M.D. PHYSICIAN MANDREL MAKER: Iris Candelario CHIEF COMPLAINT: Abdominal pain. HISTORY OF PRESENT ILLNESS: The patient is a 62-year-old female who is being seen on the step down unit of [facility] for a initial comprehensive pain ,anagement consultation. The patient was admitted to ER where she was having abdominal pain and discomfort and vomiting coffee-ground emesis, admitted to the hospital for further care. At this time, the patient is comfortable, rated the pain 7/10, taking Tylenol as needed, which has reduced the pain. The patient will be going for an upper GI endoscopy with the oracle database developer and she has no other complaints. PAST MEDICAL HISTORY: Diabetes mellitus. PAST SURGICAL HISTORY: Denies. SOCIAL HISTORY: Denies smoking, drinking alcohol, or intravenous drug abuse. ALLERGIES: Penicillin. REVIEW OF SYSTEMS: Denies rash, fever, chills, sweating, dizziness, drowsiness, blurred vision, sore throat, or change in her weight. No shortness of breath or chest pain. No bowel or bladder incontinence. No dysuria. She is complaining of abdominal pain. PHYSICAL EXAMINATION: GENERAL: Alert, awake, and oriented. VITAL SIGNS: Blood pressure 108/61, heart rate 93, oxygen saturation 94%, respiratory rate 25, temperature is 98 degrees Fahrenheit. HEENT: PERRLA. NECK: Range of motion is full in all directions. No tenderness to paracervical muscles. No adenopathy. LUNGS: Decreased breath sounds bilaterally. HEART: Regular. ABDOMEN: Obese. BACK: Range of motion is decreased in flexion and extension. EXTREMITIES: Upper and lower extremity motion is decreased due to the patient's pain and condition. No cyanosis. No clubbing. Sensory is intact. Reflexes are not obtainable. No adenopathy. ASSESSMENT AND PLAN: This is a 62-year-old female with abdominal pain, gastrointestinal bleed. The patient to be continued on Tylenol as needed. The patient was discussed with Dr. Garrido and Dr. Garrido concurred. We will follow the patient . Thank you very much for the courtesy of this consultation. Ellie Garrido M.D. SHOBHA Candelario DR: Nicholas JOB#: [id number] CC: [place]
--- NOTE | 2018-06-27 01:45 | History and Physical Report ---
DATE OF ADMISSION: 06/25/2018 HISTORY OF PRESENT ILLNESS: The patient is admitted for abdominal pain, , vomiting coffee-ground, and elevated lipase. History is obtained from the daughter at the bedside. The patient has been having diffuse abdominal pain for one week and vomited blood and is admitted for those reasons. Denies fever or chills. Denies cough. Denies shortness of breath. Denies chest pain. PAST MEDICAL HISTORY: Significant for iron-deficiency anemia, NIDDM, hypertension, and history of gastroparesis. PAST SURGERY HISTORY: Right arm surgery and hysterectomy. ALLERGIES: To penicillin. MEDICATIONS: Aspirin, ferrous sulfate, glipizide, losartan, metformin, and propranolol. FAMILY HISTORY: Noncontributory. SOCIAL HISTORY: No history of smoking, alcohol, or illicit drugs. REVIEW OF SYSTEMS: HEENT: Denies headaches. RESPIRATORY: Denies shortness of breath. Denies cough. CARDIOVASCULAR: Denies chest pain. GASTROINTESTINAL: Did have vomiting blood since yesterday and abdominal pain for one week. No constipation. No diarrhea. EXTREMITIES: Denies pain in lower extremities. CENTRAL NERVOUS SYSTEM: Denies change in vision or speech pattern. PHYSICAL EXAMINATION: VITAL SIGNS: Temperature is 97, pulse is 93, and blood pressure 123/58. HEENT: PERRLA. NECK: Supple. No lymphadenopathy. CHEST: Clear to auscultation. GASTROINTESTINAL: Soft, nontender, and nondistended. No organomegaly. EXTREMITIES: No edema. Moves all four extremities. NEUROLOGIC: Sensory intact to light touch. Reflexes are equal on both sides. Moves all four extremities. LABORATORY AND DIAGNOSTIC DATA: WBC of 9.8, hemoglobin 11.7, and platelets 203. Sodium 135, potassium 4.4, BUN of 22, creatinine 0.7, and glucose 194. ASSESSMENT AND PLAN: Abdominal pain, vomiting coffee-ground, upper GI bleed, elevated lipase of 442. I have asked Dr. Damico , Dr. Garrido, Dr. Deras, Dr. Miller, and Dr. Guadalupe to see the patient for the pain control and the workup of the gastrointestinal bleed and rule out disease as well as for pain control and see if there is any surgical reason for the bleeding. Isabel Miller M.D. DR: Regino JOB#: [id number] CC:
--- NOTE | 2018-06-27 02:00 | Consultation ---
DATE OF CONSULTATION: 06/26/2018 GASTROLOGY CONSULTATION CONSULTING PHYSICIAN: Ct Deras M.D. CHIEF COMPLAINT: I was asked to see this patient by Dr. Isabel Miller for management of gastrointestinal bleeding, abdominal pain and abnormal CT scan. HISTORY OF PRESENT ILLNESS: The patient is a 62-year-old woman, who comes into the hospital due to abdominal pain. She is not a good historian and does not know details of her history very well. She states that she is having pain since February 2018 and does experience a gradually worsening. The pain is diffuse and she is actually hospitalized in May, about a month ago at [facility] for a few days. She reported endoscopy and colonoscopy and some other workup and she is not aware of any actual diagnosis or details. She is on Inderal on the medication list. She has some worsening nausea and some episodes of dark emesis. Here in the hospital, she had some small amount of hematemesis, the last has been subsequently a large bowel hematemesis with a drop in hematocrit. Therefore, an emergency endoscopy was scheduled this morning. The indications, risks and alternatives were explained to the patient and informed consent was obtained. The patient denies any diarrhea. She does have a history of diabetes and her obesity. PAST MEDICAL HISTORY: History of iyu-bmcxtia-rxtqkjrdy diabetes. ALLERGIES: To penicillin. FAMILY HISTORY: Noncontributory. SOCIAL HISTORY: The patient denies smoking or drinking. REVIEW OF SYSTEMS: Otherwise, negative. PHYSICAL EXAMINATION: GENERAL: The patient is obese woman, seen in the GI laboratory. HEENT: Normocephalic and atraumatic. Oropharynx clear. NECK: Supple. CHEST: Clear to auscultation. CARDIOVASCULAR: Revealed regular rate. ABDOMEN: Soft, obese, mildly tender to palpation, more so in the lower quadrants without guarding or rebound. EXTREMITIES: Revealed trace edema. LABORATORY AND DIAGNOSTIC DATA: Laboratory data and imaging studies were noted. ASSESSMENT: This patient presents with abdominal pain, which is diffuse of unclear etiology. There is some changes on the CT scan to suggest some type of gastroenteritis. The patient will have an endoscopic evaluation of this area and repeat stool cultures for ova and parasites to be sent off to rule out any infectious pathologies. More significant however the patient does have some evidence of cirrhosis on her imaging studies and the etiology of the upper GI bleeding will therefore include possible varicocele bleeding. Alternatively, the patient could have peptic ulcer review, which could explain both her pain and her bleeding. The patient will undergo emergency endoscopy today to evaluate the site of bleeding and to further treat her. The patient should also have a thyroid serologies and autoimmune markers checked. RECOMMENDATIONS: Per above discussion and per orders written in the chart. Thank you for asking me to participate in the care of this patient. Ct Deras M.D. DR: RINA JOB#: [id number] CC: [place]
[2018-06-27 04:00] VITALS: BP 142/55
[2018-06-27] MEDS: Metoclopramide 10mg/2ml Inj IVP SCH ×4 (04:23→21:41)
--- NOTE | 2018-06-27 06:15 | Consultation ---
DATE OF CONSULTATION: 06/26/2018 NOTE: POOR AUDIO INFECTIOUS DISEASE CONSULTATION CONSULTING PHYSICIAN: Ignacio Damico M.D. PRIMARY ATTENDING PHYSICIAN: Isabel Miller M.D. REASON FOR CONSULT: Leukocytosis. HISTORY OF PRESENT ILLNESS: The patient is a 62-year-old female admitted yesterday through ER complaining of abdominal pain, discomfort, dizziness, and coffee-ground vomiting. PAST MEDICAL HISTORY: Significant for diabetes mellitus and hypertension. ALLERGIES: Allergic to penicillin. MEDICATIONS: Getting sodium chloride, octreotide, fentanyl, midazolam, Zofran, diphenhydramine, amlodipine, metoclopramide, Tylenol, clonidine, and Protonix. SOCIAL HISTORY: No history of alcohol, drug abuse, or smoking. She has 4 children. She is single. REVIEW OF SYSTEMS: Some pain and discomfort in the epigastric area. The patient had an EGD earlier today. No coughing. No shortness of breath. The patient is ambulatory at home. PHYSICAL EXAMINATION: GENERAL: No acute distress. Obese. HEAD AND NECK: [place] conjunctivae. HEART: Regular. Normal rate. LUNGS: Clear. ABDOMEN: Soft. Mildly tender in epigastric area. EXTREMITIES: No pitting edema. NEUROLOGIC: Awake, alert, and oriented x3. LABORATORY AND DIAGNOSTIC DATA: Sodium 141, potassium 4.2, chloride 108, bicarbonate 26, BUN 4, creatinine 0.8, and glucose 255. UA, wbc's 0 to 2, rbc's 2 to 4, glucose 4+, ketone 3+, and occult blood 2+. CT scan of the abdomen and pelvis shows impression of wall thickening of gastric antrum, proximal to small bowel and ascending colon, suspicious for enterocolitis and edematous gallbladder wall without evidence of gallstone or gallbladder distention, a slight hepatic surface irregularity could indicate early cirrhotic changes. WBC is 15.8, hemoglobin 8.3, hematocrit 26.2, and platelets are 194. There was a drop in hemoglobin and hematocrit since admission, hemoglobin was 11.7 at the time of admission. IMPRESSION: 1. Leukocytosis, maybe secondary to upper GI bleeding. 2. Upper GI bleeding. We will follow up the EGD report. 3. Diabetes mellitus. 4. Hypertension. 5. Penicillin allergy. RECOMMENDATIONS: Observe off antibiotic. We will follow up the EGD report. At the end of my exam, I thank Dr. Miller for involving me in the care of this patient. Ignacio Damico M.D. DR: LAURA JOB#: [id number] CC:
--- NOTE | 2018-06-27 06:51 | Consultation ---
Consult Note Consult Note Heme consult Date patient seen: Jun 27, 2018 Chief Complaint: General Complaint Reason for Consultation: Anemia and GI bleeding REPhi MD: Angela Present Illness HPI 62 year old female presented with abdominal discomfort, nausea and coffee ground emesis. upon admission had large emesis with coffee ground as well. had endoscopy today which demonstrated varices, portal htn. surgery called to evaluate for abdominal pain. patient seen, chart reviewed, patient examined. CT scan with enteritis. labs with anemia after resuscitation. leukocytosis. currently pain improving. has been seen by surgery, gi, ID, renal Allergies: PENICILLINS (Unverified Allergy, Unknown, 06/25/18) Uncoded Allergies: pcn (Allergy, Unknown, 06/25/18) Medication History Scheduled Aspirin* (Aspirin*), 81 MG ORAL DAILY, (Reported) Ferrous Sulfate (Ferrous Sulfate), 325 MG PO DAILY, (Reported) Glipizide* (Glipizide*), 5 MG ORAL BIDAC, (Reported) Losartan Potassium (Losartan Potassium), 100 MG PO DAILY, (Reported) Metformin Hcl* (Metformin Hcl*), 500 MG ORAL TWICE A DAY, (Reported) Propranolol Hcl* (Inderal*), 10 MG ORAL BID, (Reported) Scheduled PRN Metoclopramide Hcl* (Metoclopramide Hcl*), 5 MG ORAL EVERY 6 HOURS PRN for Abdominal cramps, (Reported) Patient History History Provided By: Patient, Medical Record, PMD Healthcare decision maker n/a Resuscitation status Full Code Advanced Directive on File No Past Medical/Surgical History Past Medical/Surgical History: (1) Muscle weakness (generalized) (2) Bloody emesis (3) Dehydration (4) GI bleed (5) Coffee ground emesis Review of Systems All Other Systems: negative except mentioned in HPI Physical Exam General Appearance: no apparent distress Lines, tubes and drains: peripheral HEENT: normocephalic, atraumatic, mucous membranes moist Neck: normal inspection Respiratory/Chest: normal breath sounds Cardiovascular/Chest: normal peripheral pulses, normal rate Abdomen: normal bowel sounds, non tender, soft Extremities: normal inspection Skin Exam: warm/dry Neurologic: alert, oriented x 3 Last 24 Hour Vital Signs Date Time Temp Pulse Resp B/P (MAP) Pulse Ox O2 Delivery O2 Flow Rate FiO2 06/27/18 04:00 98.7 86 18 142/55 (84) 96 98.7 06/27/18 04:00 Room Air 06/27/18 04:00 87 06/27/18 00:00 93 06/27/18 00:00 Room Air 06/26/18 23:41 98.4 95 20 117/88 (98) 98 98.4 06/26/18 20:00 Room Air 06/26/18 20:00 96.1 91 18 110/54 (72) 95 96.1 06/26/18 19:55 89 06/26/18 16:00 92 06/26/18 16:00 Room Air 06/26/18 16:00 98.4 97 18 114/52 (72) 97 98.4 94 06/26/18 12:18 97 06/26/18 12:00 Room Air 06/26/18 11:58 206.6 94 18 99 06/26/18 11:57 206.6 94 18 100 06/26/18 11:35 91 23 127/59 96 Room Air 06/26/18 11:25 97 93 24 123/58 97 Room Air 97.0 06/26/18 11:20 95 28 106/63 100 Nasal Cannula 3 06/26/18 11:08 90 15 114/53 100 Nasal Cannula 3 06/26/18 11:03 94 15 110/56 100 Nasal Cannula 3 06/26/18 10:58 97 94 18 114/60 100 Simple Mask 5 97.0 06/26/18 08:06 100 06/26/18 08:00 98.2 94 22 103/42 (62) 97 98.2 94 06/26/18 08:00 Room Air Laboratory Tests Test 06/26/18 03:30 06/26/18 22:47 White Blood Count 15.8 K/UL (4.8-10.8) H 13.2 K/UL (4.8-10.8) H Red Blood Count 3.14 M/UL (4.20-5.40) L 2.69 M/UL (4.20-5.40) L Hemoglobin 8.3 G/DL (12.0-16.0) L 7.4 G/DL (12.0-16.0) L Hematocrit 26.2 % (37.0-47.0) L 22.6 % (37.0-47.0) L Mean Corpuscular Volume 84 FL (80-99) 84 FL (80-99) Mean Corpuscular Hemoglobin 26.5 PG (27.0-31.0) L 27.7 PG (27.0-31.0) Mean Corpuscular Hemoglobin Concent 31.7 G/DL (32.0-36.0) L 33.0 G/DL (32.0-36.0) Red Cell Distribution Width 16.3 % (11.6-14.8) H 16.9 % (11.6-14.8) H Platelet Count 194 K/UL (150-450) 173 K/UL (150-450) Mean Platelet Volume 7.2 FL (6.5-10.1) 6.3 FL (6.5-10.1) L Neutrophils (%) (Auto) 67.5 % (45.0-75.0) % (45.0-75.0) Lymphocytes (%) (Auto) 23.4 % (20.0-45.0) % (20.0-45.0) Monocytes (%) (Auto) 8.6 % (1.0-10.0) % (1.0-10.0) Eosinophils (%) (Auto) 0.0 % (0.0-3.0) % (0.0-3.0) Basophils (%) (Auto) 0.5 % (0.0-2.0) % (0.0-2.0) Sodium Level 141 MMOL/L (136-145) Potassium Level 4.2 MMOL/L (3.5-5.1) Chloride Level 108 MMOL/L (98-107) H Carbon Dioxide Level 26 MMOL/L (21-32) Anion Gap 7 mmol/L (5-15) Blood Urea Nitrogen 46 mg/dL (7-18) H Creatinine 0.8 MG/DL (0.55-1.30) Estimat Glomerular Filtration Rate > 60 mL/min (>60) Glucose Level 255 MG/DL (74-106) H Calcium Level 7.9 MG/DL (8.5-10.1) L Total Bilirubin 0.5 MG/DL (0.2-1.0) Aspartate Amino Transf (AST/SGOT) 35 U/L (15-37) Alanine Aminotransferase (ALT/SGPT) 37 U/L (12-78) Alkaline Phosphatase 112 U/L (46-116) C-Reactive Protein, Quantitative 0.9 mg/dL (0.00-0.90) Total Protein 5.7 G/DL (6.4-8.2) L Albumin 2.3 G/DL (3.4-5.0) L Globulin 3.4 g/dL Albumin/Globulin Ratio 0.7 (1.0-2.7) L Lipase 158 U/L (73-393) Differential Total Cells Counted 100 Neutrophils % (Manual) 61 % (45-75) Lymphocytes % (Manual) 29 % (20-45) Monocytes % (Manual) 8 % (1-10) Eosinophils % (Manual) 1 % (0-3) Basophils % (Manual) 1 % (0-2) Band Neutrophils 0 % (0-8) Platelet Estimate Adequate Platelet Morphology Normal Hypochromasia 1+ Anisocytosis 1+ Height (Feet): 5 Height (Inches): 5.00 Weight (Pounds): 218 Medications Current Medications Medications (Trade) Dose Ordered Sig/Sushila Route PRN Reason Start Time Stop Time Status Last Admin Dose Admin Acetaminophen (Tylenol) 500 mg Q4H PRN ORAL Mild Pain/Temp > 100.5 06/26/18 03:00 07/25/18 14:59 06/26/18 02:43 Clonidine HCl (Catapres Tab) 0.1 mg Q6H PRN ORAL For High Blood Pressure 06/26/18 03:00 07/25/18 14:59 Dextrose (Dextrose 50%) 50 ml STAT PRN IV hypoglycemia 06/26/18 06:00 07/25/18 14:59 Metoclopramide HCl (Reglan) 10 mg Q6H IVP 06/26/18 04:30 07/25/18 22:29 06/26/18 22:51 Octreotide Acetate 500 mcg/ Sodium Chloride 500 ml @ 25 mls/hr Q20H IV 06/26/18 12:00 07/26/18 11:59 06/26/18 12:24 Pantoprazole (Protonix) 40 mg EVERY 12 HOURS IVP 06/26/18 00:15 07/26/18 00:14 06/26/18 21:28 Sodium Chloride 1,000 ml @ 75 mls/hr [id number] IV 06/26/18 13:13 07/25/18 13:12 06/26/18 14:51 Assessment/RECS Problem List: # Anemia due to Gi bleed with abdominal pain --> has seen surgical service as well as Gi team, endoscopy as needed --> anemia workup has been reviewed and venofer if ferritin is >50 --> transfuse to hgb goal >7 # Coagulopathy in the setting of liver cirrhosis and splenomegaly --> vit K 10mg sq x 1 given --> FFP if the INR >1.5, and she continues to bleed # Leukocytosis likely reactive process to bleed --> monitor for resolution, will improve as bleed resolves # Abdominal pain likely related to varices, portal htn, etc # Portal HTN, varcies on egd noted by GI doc GREATLY APPRECIATE CONSULTATION Ashvin Martin MD Jun 27, 2018 06:51
[2018-06-27 06:59] LABS: % IRON SATURATION 8 % (15-50); IRON 20 ug/dL (50-175); TOTAL IRON BINDING CAPACITY 244 ug/dL (250-450)
[2018-06-27] MEDS ORDERED: Phytonadione 10 mg/mL 1ml amp SUBQ ONE (07:00)
[2018-06-27 07:30] LABS: ALANINE AMINOTRANSFERASE 45 U/L (12-78); ALBUMIN 2.4 G/DL (3.4-5.0); ALBUMIN/GLOBULIN RATIO 0.8 (1.0-2.7); ALKALINE PHOSPHATASE 91 U/L (46-116); ANION GAP 7 mmol/L (5-15); ASPARTATE AMINO TRANSFERASE 50 U/L (15-37); BILIRUBIN,TOTAL 0.3 MG/DL (0.2-1.0); BLOOD UREA NITROGEN 33 mg/dL (7-18); CALCIUM 7.7 MG/DL (8.5-10.1); CARBON DIOXIDE 25 MMOL/L (21-32); CHLORIDE 111 MMOL/L (98-107); CREATININE 0.7 MG/DL (0.55-1.30); FERRITIN 44 NG/ML (8-388); HDL CHOLESTEROL 29 MG/DL (40-60); PHOSPHORUS 3.2 MG/DL (2.5-4.9); POTASSIUM 3.9 MMOL/L (3.5-5.1); SODIUM 143 MMOL/L (136-145); TRIGLYCERIDES 186 MG/DL (30-150)
[2018-06-27 07:43] LABS: HEMATOCRIT 22.3 % (37.0-47.0); MEAN CORPUSCULAR VOLUME 85 FL (80-99); PLATELET COUNT 167 K/UL (150-450); RED BLOOD COUNT 2.63 M/UL (4.20-5.40); RED CELL DISTRIBUTION WIDTH 16.4 % (11.6-14.8); WHITE BLOOD COUNT 9.9 K/UL (4.8-10.8)
[2018-06-27 07:53] VITALS: BP 127/52
[2018-06-27 07:58] LABS: CHOLESTEROL 119 MG/DL (< 200)
[2018-06-27] MEDS: Octreotide Acetate 500 MCG in Sodium Chloride 500ML 499 ML IV SCH (07:58)
[2018-06-27] MEDS: Pantoprazole Inj IVP SCH ×2 (09:03→21:41)
[2018-06-27] MEDS: cefTRIAXone 1 GM in D5W 55 ML IVPB SCH (09:28)
--- NOTE | 2018-06-27 09:50 | Infectious Diseases Prog Note ---
Assessment/Plan Assessment/Plan A: Leukocytosis resolved Upper GI bleeding Esophageal Varices Anemia Cirrhosis DM P: Started on Ceftriaxone because of increased risk of infection Subjective ROS Limited/Unobtainable: No Constitutional: Reports: no symptoms Respiratory: Reports: no symptoms Cardiovascular: Reports: no symptoms Gastrointestinal/Abdominal: Reports: other - abdominal & retrosternal pain Genitourinary: Reports: no symptoms Allergies: Coded Allergies: PENICILLINS (Unverified Allergy, Unknown, 06/25/18) Objective Vital Signs Last 24 Hour Vital Signs Date Time Temp Pulse Resp B/P (MAP) Pulse Ox O2 Delivery O2 Flow Rate FiO2 06/27/18 08:00 91 06/27/18 07:53 98.0 92 20 127/52 (77) 96 98.0 06/27/18 04:00 98.7 86 18 142/55 (84) 96 98.7 06/27/18 04:00 Room Air 06/27/18 04:00 87 06/27/18 00:00 93 06/27/18 00:00 Room Air 06/26/18 23:41 98.4 95 20 117/88 (98) 98 98.4 06/26/18 20:00 Room Air 06/26/18 20:00 96.1 91 18 110/54 (72) 95 96.1 06/26/18 19:55 89 06/26/18 16:00 92 06/26/18 16:00 Room Air 06/26/18 16:00 98.4 97 18 114/52 (72) 97 98.4 94 06/26/18 12:18 97 06/26/18 12:00 Room Air 06/26/18 11:58 206.6 94 18 99 06/26/18 11:57 206.6 94 18 100 06/26/18 11:35 91 23 127/59 96 Room Air 06/26/18 11:25 97 93 24 123/58 97 Room Air 97.0 06/26/18 11:20 95 28 106/63 100 Nasal Cannula 3 06/26/18 11:08 90 15 114/53 100 Nasal Cannula 3 06/26/18 11:03 94 15 110/56 100 Nasal Cannula 3 06/26/18 10:58 97 94 18 114/60 100 Simple Mask 5 97.0 Height (Feet): 5 Height (Inches): 5.00 Weight (Pounds): 218 General Appearance: no acute distress HEENT: mucous membranes moist Respiratory/Chest: lungs clear Cardiovascular: normal rate Abdomen: soft, non tender Extremities: no edema Neurologic/Psychiatric: alert, responsive Laboratory Tests Test 06/26/18 22:47 06/27/18 04:00 06/27/18 06:55 White Blood Count 13.2 K/UL (4.8-10.8) H 9.9 K/UL (4.8-10.8) Red Blood Count 2.69 M/UL (4.20-5.40) L 2.63 M/UL (4.20-5.40) L Hemoglobin 7.4 G/DL (12.0-16.0) L 7.0 G/DL (12.0-16.0) L Hematocrit 22.6 % (37.0-47.0) L 22.3 % (37.0-47.0) L Mean Corpuscular Volume 84 FL (80-99) 85 FL (80-99) Mean Corpuscular Hemoglobin 27.7 PG (27.0-31.0) 26.8 PG (27.0-31.0) L Mean Corpuscular Hemoglobin Concent 33.0 G/DL (32.0-36.0) 31.6 G/DL (32.0-36.0) L Red Cell Distribution Width 16.9 % (11.6-14.8) H 16.4 % (11.6-14.8) H Platelet Count 173 K/UL (150-450) 167 K/UL (150-450) Mean Platelet Volume 6.3 FL (6.5-10.1) L 6.9 FL (6.5-10.1) Neutrophils (%) (Auto) % (45.0-75.0) % (45.0-75.0) Lymphocytes (%) (Auto) % (20.0-45.0) % (20.0-45.0) Monocytes (%) (Auto) % (1.0-10.0) % (1.0-10.0) Eosinophils (%) (Auto) % (0.0-3.0) % (0.0-3.0) Basophils (%) (Auto) % (0.0-2.0) % (0.0-2.0) Differential Total Cells Counted 100 Neutrophils % (Manual) 61 % (45-75) Pending Lymphocytes % (Manual) 29 % (20-45) Pending Monocytes % (Manual) 8 % (1-10) Eosinophils % (Manual) 1 % (0-3) Basophils % (Manual) 1 % (0-2) Band Neutrophils 0 % (0-8) Platelet Estimate Adequate Pending Platelet Morphology Normal Pending Hypochromasia 1+ Anisocytosis 1+ Sodium Level 143 MMOL/L (136-145) Potassium Level 3.9 MMOL/L (3.5-5.1) Chloride Level 111 MMOL/L (98-107) H Carbon Dioxide Level 25 MMOL/L (21-32) Anion Gap 7 mmol/L (5-15) Blood Urea Nitrogen 33 mg/dL (7-18) H Creatinine 0.7 MG/DL (0.55-1.30) Estimat Glomerular Filtration Rate > 60 mL/min (>60) Glucose Level 159 MG/DL (74-106) H Uric Acid 5.3 MG/DL (2.6-7.2) Calcium Level 7.7 MG/DL (8.5-10.1) L Phosphorus Level 3.2 MG/DL (2.5-4.9) Magnesium Level 1.9 MG/DL (1.8-2.4) Iron Level 20 ug/dL (50-175) L Total Iron Binding Capacity 244 ug/dL (250-450) L Percent Iron Saturation 8 % (15-50) L Unsaturated Iron Binding 224 ug/dL (112-346) Ferritin 44 NG/ML (8-388) Total Bilirubin 0.3 MG/DL (0.2-1.0) Aspartate Amino Transf (AST/SGOT) 50 U/L (15-37) H Alanine Aminotransferase (ALT/SGPT) 45 U/L (12-78) Alkaline Phosphatase 91 U/L (46-116) Pro-B-Type Natriuretic Peptide 24 pg/mL (0-125) Total Protein 5.6 G/DL (6.4-8.2) L Albumin 2.4 G/DL (3.4-5.0) L Globulin 3.2 g/dL Albumin/Globulin Ratio 0.8 (1.0-2.7) L Triglycerides Level 186 MG/DL (30-150) H Cholesterol Level 119 MG/DL (< 200) LDL Cholesterol 53 mg/dL (<100) HDL Cholesterol 29 MG/DL (40-60) L Cholesterol/HDL Ratio 4.1 (3.3-4.4) Lipase 226 U/L (73-393) Vitamin B12 Level 397 PG/ML (193-986) Folate 19.8 NG/ML (8.6-58.9) Thyroid Stimulating Hormone (TSH) 0.343 uiU/mL (0.358-3.740) Hemoglobin A1c 7.6 % (4.3-6.0) H Anti-Nuclear Antibody Screen Pending Hepatitis A IgM Antibody Pending Hepatitis B Surface Antigen Pending Hepatitis B Core IgM Antibody Pending Hepatitis C Antibody Pending Current Medications Medications (Trade) Dose Ordered Sig/Sushila Route PRN Reason Start Time Stop Time Status Last Admin Dose Admin Acetaminophen (Tylenol) 500 mg Q4H PRN ORAL Mild Pain/Temp > 100.5 06/26/18 03:00 07/25/18 14:59 06/26/18 02:43 Ceftriaxone Sodium 1 gm/ Dextrose 55 ml @ 110 mls/hr DAILY IVPB 06/27/18 09:00 07/04/18 08:59 06/27/18 09:28 Clonidine HCl (Catapres Tab) 0.1 mg Q6H PRN ORAL For High Blood Pressure 06/26/18 03:00 07/25/18 14:59 Dextrose (Dextrose 50%) 50 ml STAT PRN IV hypoglycemia 06/26/18 06:00 07/25/18 14:59 Metoclopramide HCl (Reglan) 10 mg Q6H IVP 06/26/18 04:30 07/25/18 22:29 06/27/18 04:23 Octreotide Acetate 500 mcg/ Sodium Chloride 500 ml @ 25 mls/hr Q20H IV 06/26/18 12:00 07/26/18 11:59 06/27/18 07:58 Pantoprazole (Protonix) 40 mg EVERY 12 HOURS IVP 06/26/18 00:15 07/26/18 00:14 06/27/18 09:03 Sodium Chloride 1,000 ml @ 75 mls/hr [id number] IV 06/26/18 13:13 07/25/18 13:12 06/27/18 03:49 Ignacio Damico MD Jun 27, 2018 09:50
[2018-06-27] MEDS ORDERED: Morphine Sulfate 2mg/ml Inj(IV/IM USE ONLY) IVP SCH (11:05)
[2018-06-27 11:30] VITALS: BP 141/49
--- NOTE | 2018-06-27 13:05 | Diagnostic Imaging Report ---
Indications: Abdominal pain, abnormal recent CT scan Technique: IV administration 5.5 mCi 99 M technetium Choletec. Serial images obtained over the abdomen for one hour Comparison: None Findings: Prompt tracer uptake within the liver. Extrahepatic bile ducts are seen at 31 minutes. Excretion into the duodenum demonstrated at 49 minutes. Gallbladder visualized at 28 minutes. Impression: Negative
--- NOTE | 2018-06-27 13:53 | Nephrology Progress Note ---
Assessment/Plan Problem List: (1) Dehydration (2) GI bleed (3) Abdominal pain (4) Diabetes mellitus Assessment GI bleed due to varices/ had endoscopy and banding Anemia Dehydration / GI bleed: leading to Azotemia DM PCN Allergy Plan Hydrate- Monitor H&H transfuse as needed. Monitor Renal parameters IV Venofer Per orders Per GI Subjective ROS Limited/Unobtainable: No Constitutional: Reports: malaise Objective Objective Last 24 Hour Vital Signs Date Time Temp Pulse Resp B/P (MAP) Pulse Ox O2 Delivery O2 Flow Rate FiO2 06/27/18 12:00 Room Air 06/27/18 12:00 97 06/27/18 11:30 98.2 89 20 141/49 (79) 95 98.2 06/27/18 08:00 91 06/27/18 08:00 Room Air 06/27/18 07:53 98.0 92 20 127/52 (77) 96 98.0 06/27/18 04:00 98.7 86 18 142/55 (84) 96 98.7 06/27/18 04:00 Room Air 06/27/18 04:00 87 06/27/18 00:00 93 06/27/18 00:00 Room Air 06/26/18 23:41 98.4 95 20 117/88 (98) 98 98.4 06/26/18 20:00 Room Air 06/26/18 20:00 96.1 91 18 110/54 (72) 95 96.1 06/26/18 19:55 89 06/26/18 16:00 92 06/26/18 16:00 Room Air 06/26/18 16:00 98.4 97 18 114/52 (72) 97 98.4 94 Intake and Output 06/26/18 06/27/18 19:00 07:00 Intake Total 1413 ml 1138 ml Output Total 350 ml 500 ml Balance 1063 ml 638 ml Intake IV Total 1413 ml 1138 ml Output Urine Total 350 ml 500 ml Laboratory Tests 06/26/18 22:47: White Blood Count 13.2H, Red Blood Count 2.69L, Hemoglobin 7.4L, Hematocrit 22.6L, Mean Corpuscular Volume 84, Mean Corpuscular Hemoglobin 27.7, Mean Corpuscular Hemoglobin Concent 33.0, Red Cell Distribution Width 16.9H, Platelet Count 173, Mean Platelet Volume 6.3L, Neutrophils (%) (Auto) , Lymphocytes (%) (Auto) , Monocytes (%) (Auto) , Eosinophils (%) (Auto) , Basophils (%) (Auto) , Differential Total Cells Counted 100, Neutrophils % ( Manual) 61, Lymphocytes % (Manual) 29, Monocytes % (Manual) 8, Eosinophils % ( Manual) 1, Basophils % (Manual) 1, Band Neutrophils 0, Platelet Estimate Adequate, Platelet Morphology Normal, Hypochromasia 1+, Anisocytosis 1+ 06/27/18 04:00: Sodium Level 143, Potassium Level 3.9, Chloride Level 111H, Carbon Dioxide Level 25, Anion Gap 7, Blood Urea Nitrogen 33H, Creatinine 0.7, Estimat Glomerular Filtration Rate > 60, Glucose Level 159H, Uric Acid 5.3, Calcium Level 7.7L, Phosphorus Level 3.2, Magnesium Level 1.9, Iron Level 20L, Total Iron Binding Capacity 244L, Percent Iron Saturation 8L, Unsaturated Iron Binding 224, Ferritin 44, Total Bilirubin 0.3, Aspartate Amino Transf (AST/SGOT ) 50H, Alanine Aminotransferase (ALT/SGPT) 45, Alkaline Phosphatase 91, Pro-B- Type Natriuretic Peptide 24, Total Protein 5.6L, Albumin 2.4L, Globulin 3.2, Albumin/Globulin Ratio 0.8L, Triglycerides Level 186H, Cholesterol Level 119, LDL Cholesterol 53, HDL Cholesterol 29L, Cholesterol/HDL Ratio 4.1, Lipase 226, Vitamin B12 Level 397, Folate 19.8, Thyroid Stimulating Hormone (TSH) 0.343L 06/27/18 06:55: White Blood Count 9.9, Red Blood Count 2.63L, Hemoglobin 7.0L, Hematocrit 22.3L , Mean Corpuscular Volume 85, Mean Corpuscular Hemoglobin 26.8L, Mean Corpuscular Hemoglobin Concent 31.6L, Red Cell Distribution Width 16.4H, Platelet Count 167, Mean Platelet Volume 6.9, Neutrophils (%) (Auto) , Lymphocytes (%) (Auto) , Monocytes (%) (Auto) , Eosinophils (%) (Auto) , Basophils (%) (Auto) , Differential Total Cells Counted 100, Neutrophils % ( Manual) 60, Lymphocytes % (Manual) 30, Monocytes % (Manual) 7, Eosinophils % ( Manual) 2, Basophils % (Manual) 1, Band Neutrophils 0, Platelet Estimate Adequate, Platelet Morphology Normal, Hypochromasia 3+, Anisocytosis 1+, Hemoglobin A1c 7.6H, Anti-Nuclear Antibody Screen [Pending], Hepatitis A IgM Antibody [Pending], Hepatitis B Surface Antigen [Pending], Hepatitis B Core IgM Antibody [Pending], Hepatitis C Antibody [Pending] Height (Feet): 5 Height (Inches): 5.00 Weight (Pounds): 218 General Appearance: no apparent distress Cardiovascular: tachycardia Respiratory/Chest: lungs clear Abdomen: other Objective PE not changed Ryley Guadalupe MD Jun 27, 2018 13:53
--- NOTE | 2018-06-27 14:22 | General Surgery Progress Note ---
General Surgery-Progress Note Subjective Additional Comments no acute events. doing well. comfortable. no n/v/f/c. Objective Last 24 Hour Vital Signs Date Time Temp Pulse Resp B/P (MAP) Pulse Ox O2 Delivery O2 Flow Rate FiO2 06/27/18 12:00 Room Air 06/27/18 12:00 97 06/27/18 11:30 98.2 89 20 141/49 (79) 95 98.2 06/27/18 08:00 91 06/27/18 08:00 Room Air 06/27/18 07:53 98.0 92 20 127/52 (77) 96 98.0 06/27/18 04:00 98.7 86 18 142/55 (84) 96 98.7 06/27/18 04:00 Room Air 06/27/18 04:00 87 06/27/18 00:00 93 06/27/18 00:00 Room Air 06/26/18 23:41 98.4 95 20 117/88 (98) 98 98.4 06/26/18 20:00 Room Air 06/26/18 20:00 96.1 91 18 110/54 (72) 95 96.1 06/26/18 19:55 89 06/26/18 16:00 92 06/26/18 16:00 Room Air 06/26/18 16:00 98.4 97 18 114/52 (72) 97 98.4 94 I&O Intake and Output 06/26/18 06/27/18 19:00 07:00 Intake Total 1413 ml 1138 ml Output Total 350 ml 500 ml Balance 1063 ml 638 ml Intake IV Total 1413 ml 1138 ml Output Urine Total 350 ml 500 ml Drains: none Cardiovascular: RSR Respiratory: clear Abdomen: soft, flat, non-tender, present bowel sounds Extremities: no cyanosis Laboratory Tests Test 06/26/18 22:47 06/27/18 04:00 06/27/18 06:55 White Blood Count 13.2 K/UL (4.8-10.8) H 9.9 K/UL (4.8-10.8) Red Blood Count 2.69 M/UL (4.20-5.40) L 2.63 M/UL (4.20-5.40) L Hemoglobin 7.4 G/DL (12.0-16.0) L 7.0 G/DL (12.0-16.0) L Hematocrit 22.6 % (37.0-47.0) L 22.3 % (37.0-47.0) L Mean Corpuscular Volume 84 FL (80-99) 85 FL (80-99) Mean Corpuscular Hemoglobin 27.7 PG (27.0-31.0) 26.8 PG (27.0-31.0) L Mean Corpuscular Hemoglobin Concent 33.0 G/DL (32.0-36.0) 31.6 G/DL (32.0-36.0) L Red Cell Distribution Width 16.9 % (11.6-14.8) H 16.4 % (11.6-14.8) H Platelet Count 173 K/UL (150-450) 167 K/UL (150-450) Mean Platelet Volume 6.3 FL (6.5-10.1) L 6.9 FL (6.5-10.1) Neutrophils (%) (Auto) % (45.0-75.0) % (45.0-75.0) Lymphocytes (%) (Auto) % (20.0-45.0) % (20.0-45.0) Monocytes (%) (Auto) % (1.0-10.0) % (1.0-10.0) Eosinophils (%) (Auto) % (0.0-3.0) % (0.0-3.0) Basophils (%) (Auto) % (0.0-2.0) % (0.0-2.0) Differential Total Cells Counted 100 100 Neutrophils % (Manual) 61 % (45-75) 60 % (45-75) Lymphocytes % (Manual) 29 % (20-45) 30 % (20-45) Monocytes % (Manual) 8 % (1-10) 7 % (1-10) Eosinophils % (Manual) 1 % (0-3) 2 % (0-3) Basophils % (Manual) 1 % (0-2) 1 % (0-2) Band Neutrophils 0 % (0-8) 0 % (0-8) Platelet Estimate Adequate Adequate Platelet Morphology Normal Normal Hypochromasia 1+ 3+ Anisocytosis 1+ 1+ Sodium Level 143 MMOL/L (136-145) Potassium Level 3.9 MMOL/L (3.5-5.1) Chloride Level 111 MMOL/L (98-107) H Carbon Dioxide Level 25 MMOL/L (21-32) Anion Gap 7 mmol/L (5-15) Blood Urea Nitrogen 33 mg/dL (7-18) H Creatinine 0.7 MG/DL (0.55-1.30) Estimat Glomerular Filtration Rate > 60 mL/min (>60) Glucose Level 159 MG/DL (74-106) H Uric Acid 5.3 MG/DL (2.6-7.2) Calcium Level 7.7 MG/DL (8.5-10.1) L Phosphorus Level 3.2 MG/DL (2.5-4.9) Magnesium Level 1.9 MG/DL (1.8-2.4) Iron Level 20 ug/dL (50-175) L Total Iron Binding Capacity 244 ug/dL (250-450) L Percent Iron Saturation 8 % (15-50) L Unsaturated Iron Binding 224 ug/dL (112-346) Ferritin 44 NG/ML (8-388) Total Bilirubin 0.3 MG/DL (0.2-1.0) Aspartate Amino Transf (AST/SGOT) 50 U/L (15-37) H Alanine Aminotransferase (ALT/SGPT) 45 U/L (12-78) Alkaline Phosphatase 91 U/L (46-116) Pro-B-Type Natriuretic Peptide 24 pg/mL (0-125) Total Protein 5.6 G/DL (6.4-8.2) L Albumin 2.4 G/DL (3.4-5.0) L Globulin 3.2 g/dL Albumin/Globulin Ratio 0.8 (1.0-2.7) L Triglycerides Level 186 MG/DL (30-150) H Cholesterol Level 119 MG/DL (< 200) LDL Cholesterol 53 mg/dL (<100) HDL Cholesterol 29 MG/DL (40-60) L Cholesterol/HDL Ratio 4.1 (3.3-4.4) Lipase 226 U/L (73-393) Vitamin B12 Level 397 PG/ML (193-986) Folate 19.8 NG/ML (8.6-58.9) Thyroid Stimulating Hormone (TSH) 0.343 uiU/mL (0.358-3.740) Hemoglobin A1c 7.6 % (4.3-6.0) H Anti-Nuclear Antibody Screen Pending Hepatitis A IgM Antibody Pending Hepatitis B Surface Antigen Pending Hepatitis B Core IgM Antibody Pending Hepatitis C Antibody Pending Plan Problems: (1) Abdominal pain Assessment & Plan: abdominal discomfort likely from enteritis. CT with questionable cholecystitis HIDA Negative. abdominal ultrasound no acute surgical intervention planned. will follow with recs. (2) GI bleed Assessment & Plan: coffee ground emesis. EGD with portal htn, barretts. and varices. okay to start trial oral diet from surgical standpoint trend H/H no acute surgical intervention planned work up for portal ht will follow with recs. thank you for this consultation Erlin Miller Jun 27, 2018 14:22
--- NOTE | 2018-06-27 14:58 | Diagnostic Imaging Report ---
Indication: Abdominal pain Technique: Watson-scale and duplex images of the upper abdomen were obtained Comparison: Nuclear medicine hepatobiliary scan of the same day, CT scan of 06/25/2018. No prior comparison ultrasounds Findings: Gallbladder demonstrates sludge but no stones. The gallbladder wall is edematous, measuring up to 9 mm thick. Sonographic Brannon's sign is negative. Common bile duct measures 7 mm in diameter. No intrahepatic biliary ductal dilatation. It demonstrates slightly increased echogenicity. No focal abnormality. It demonstrates surface micronodular nodularity Portal vein and hepatic veins are patent. Pancreas is unremarkable. Spleen is unremarkable. Left kidney measures 10.7 cm in length. Right kidney measures 10.1 cm length. Both kidneys demonstrate normal echogenicity. There is no hydronephrosis. No focal abnormality . Non-aneurysmal abdominal aorta . Impression: Increased hepatic echogenicity, consistent with hepatocellular disease, probably not fatty change given normal attenuation of the liver on recent CT scan. Hepatic surface nodularity is suspicious for cirrhotic change Gallbladder sludge, no stones. Considerable gallbladder wall thickening/edema is noted. This is not due to acute cholecystitis, as recent hepatobiliary scan was normal. This may be either due to hemodynamic derangements related to the above-described liver disease, or could be reactive if there is active inflammation of the liver.
[2018-06-27] MEDS ORDERED: Iron Sucrose 200 MG in NS 110 ML IV ONE (15:00)
[2018-06-27] MEDS ORDERED: NS 275ml ONE (15:14)
[2018-06-27] MEDS ORDERED: 1/2 NS 1000ml IV ONE (15:14)
[2018-06-27 16:00] VITALS: BP 129/51
--- NOTE | 2018-06-27 16:32 | General Progress Note ---
Assessment/Plan Problem List: (1) Dehydration ICD Codes: E86.0 - Dehydration SNOMED: 47529710 (2) GI bleed ICD Codes: K92.2 - Gastrointestinal hemorrhage, unspecified SNOMED: 91095970 (3) Muscle weakness (generalized) ICD Codes: M62.81 - Muscle weakness (generalized) SNOMED: 98821071, 55324982 (4) Abdominal pain ICD Codes: R10.9 - Unspecified abdominal pain SNOMED: 46963067 Qualifiers: Qualified Codes: R10.84 - Generalized abdominal pain (5) Bloody emesis ICD Codes: K92.0 - Hematemesis SNOMED: 8361114 (6) Coffee ground emesis ICD Codes: K92.0 - Hematemesis SNOMED: 27236309, 256268683 (7) Diabetes mellitus ICD Codes: E11.9 - Type 2 diabetes mellitus without complications SNOMED: 80243358 Status: progressing Assessment/Plan upper gi bleed endoscopy per gi afebrile moniter for hemetemesis check h/h weak dm improving Subjective ROS Limited/Unobtainable: Yes Allergies: Coded Allergies: PENICILLINS (Unverified Allergy, Unknown, 06/25/18) Objective Last 24 Hour Vital Signs Date Time Temp Pulse Resp B/P (MAP) Pulse Ox O2 Delivery O2 Flow Rate FiO2 06/27/18 16:00 98.2 91 19 129/51 (77) 95 98.2 06/27/18 12:00 Room Air 06/27/18 12:00 97 06/27/18 11:30 98.2 89 20 141/49 (79) 95 98.2 06/27/18 08:00 91 06/27/18 08:00 Room Air 06/27/18 07:53 98.0 92 20 127/52 (77) 96 98.0 06/27/18 04:00 98.7 86 18 142/55 (84) 96 98.7 06/27/18 04:00 Room Air 06/27/18 04:00 87 06/27/18 00:00 93 06/27/18 00:00 Room Air 06/26/18 23:41 98.4 95 20 117/88 (98) 98 98.4 06/26/18 20:00 Room Air 06/26/18 20:00 96.1 91 18 110/54 (72) 95 96.1 06/26/18 19:55 89 Intake and Output 06/26/18 06/27/18 19:00 07:00 Intake Total 1413 ml 1138 ml Output Total 350 ml 500 ml Balance 1063 ml 638 ml Intake IV Total 1413 ml 1138 ml Output Urine Total 350 ml 500 ml Laboratory Tests 06/26/18 22:47: White Blood Count 13.2H, Red Blood Count 2.69L, Hemoglobin 7.4L, Hematocrit 22.6L, Mean Corpuscular Volume 84, Mean Corpuscular Hemoglobin 27.7, Mean Corpuscular Hemoglobin Concent 33.0, Red Cell Distribution Width 16.9H, Platelet Count 173, Mean Platelet Volume 6.3L, Neutrophils (%) (Auto) , Lymphocytes (%) (Auto) , Monocytes (%) (Auto) , Eosinophils (%) (Auto) , Basophils (%) (Auto) , Differential Total Cells Counted 100, Neutrophils % ( Manual) 61, Lymphocytes % (Manual) 29, Monocytes % (Manual) 8, Eosinophils % ( Manual) 1, Basophils % (Manual) 1, Band Neutrophils 0, Platelet Estimate Adequate, Platelet Morphology Normal, Hypochromasia 1+, Anisocytosis 1+ 06/27/18 04:00: Sodium Level 143, Potassium Level 3.9, Chloride Level 111H, Carbon Dioxide Level 25, Anion Gap 7, Blood Urea Nitrogen 33H, Creatinine 0.7, Estimat Glomerular Filtration Rate > 60, Glucose Level 159H, Uric Acid 5.3, Calcium Level 7.7L, Phosphorus Level 3.2, Magnesium Level 1.9, Iron Level 20L, Total Iron Binding Capacity 244L, Percent Iron Saturation 8L, Unsaturated Iron Binding 224, Ferritin 44, Total Bilirubin 0.3, Aspartate Amino Transf (AST/SGOT ) 50H, Alanine Aminotransferase (ALT/SGPT) 45, Alkaline Phosphatase 91, Pro-B- Type Natriuretic Peptide 24, Total Protein 5.6L, Albumin 2.4L, Globulin 3.2, Albumin/Globulin Ratio 0.8L, Triglycerides Level 186H, Cholesterol Level 119, LDL Cholesterol 53, HDL Cholesterol 29L, Cholesterol/HDL Ratio 4.1, Lipase 226, Vitamin B12 Level 397, Folate 19.8, Thyroid Stimulating Hormone (TSH) 0.343L 06/27/18 06:55: White Blood Count 9.9, Red Blood Count 2.63L, Hemoglobin 7.0L, Hematocrit 22.3L , Mean Corpuscular Volume 85, Mean Corpuscular Hemoglobin 26.8L, Mean Corpuscular Hemoglobin Concent 31.6L, Red Cell Distribution Width 16.4H, Platelet Count 167, Mean Platelet Volume 6.9, Neutrophils (%) (Auto) , Lymphocytes (%) (Auto) , Monocytes (%) (Auto) , Eosinophils (%) (Auto) , Basophils (%) (Auto) , Differential Total Cells Counted 100, Neutrophils % ( Manual) 60, Lymphocytes % (Manual) 30, Monocytes % (Manual) 7, Eosinophils % ( Manual) 2, Basophils % (Manual) 1, Band Neutrophils 0, Platelet Estimate Adequate, Platelet Morphology Normal, Hypochromasia 3+, Anisocytosis 1+, Hemoglobin A1c 7.6H, Anti-Nuclear Antibody Screen [Pending], Hepatitis A IgM Antibody [Pending], Hepatitis B Surface Antigen [Pending], Hepatitis B Core IgM Antibody [Pending], Hepatitis C Antibody [Pending] Height (Feet): 5 Height (Inches): 5.00 Weight (Pounds): 218 Cardiovascular: normal peripheral pulses Respiratory/Chest: lungs clear Abdomen: soft Isabel Miller MD Jun 27, 2018 16:32
[2018-06-27] MEDS: Acetaminophen 500mg (ES) tab ORAL PRN ×2 (17:08→21:53)
--- NOTE | 2018-06-27 18:18 | General Progress Note ---
Assessment/Plan Assessment/Plan Assessment - chronic abd pain - cirrhosis, possibly secondary to MEJIA - obesity - DM - UGIB due to varix Recommendations - Begin PO diet - sandostatin - Transfusion per Heme Subjective Allergies: Coded Allergies: PENICILLINS (Unverified Allergy, Unknown, 06/25/18) Subjective above noted d/w DTR - states patient has had abd pain of unknown etiology for few years also dx'd with fatty liver Objective Last 24 Hour Vital Signs Date Time Temp Pulse Resp B/P (MAP) Pulse Ox O2 Delivery O2 Flow Rate FiO2 06/27/18 16:00 87 06/27/18 16:00 98.2 91 19 129/51 (77) 95 98.2 06/27/18 16:00 Room Air 06/27/18 12:00 Room Air 06/27/18 12:00 97 06/27/18 11:30 98.2 89 20 141/49 (79) 95 98.2 06/27/18 08:00 91 06/27/18 08:00 Room Air 06/27/18 07:53 98.0 92 20 127/52 (77) 96 98.0 06/27/18 04:00 98.7 86 18 142/55 (84) 96 98.7 06/27/18 04:00 Room Air 06/27/18 04:00 87 06/27/18 00:00 93 06/27/18 00:00 Room Air 06/26/18 23:41 98.4 95 20 117/88 (98) 98 98.4 06/26/18 20:00 Room Air 06/26/18 20:00 96.1 91 18 110/54 (72) 95 96.1 06/26/18 19:55 89 Intake and Output 06/26/18 06/27/18 19:00 07:00 Intake Total 1413 ml 1138 ml Output Total 350 ml 500 ml Balance 1063 ml 638 ml Intake IV Total 1413 ml 1138 ml Output Urine Total 350 ml 500 ml Laboratory Tests 06/26/18 22:47: White Blood Count 13.2H, Red Blood Count 2.69L, Hemoglobin 7.4L, Hematocrit 22.6L, Mean Corpuscular Volume 84, Mean Corpuscular Hemoglobin 27.7, Mean Corpuscular Hemoglobin Concent 33.0, Red Cell Distribution Width 16.9H, Platelet Count 173, Mean Platelet Volume 6.3L, Neutrophils (%) (Auto) , Lymphocytes (%) (Auto) , Monocytes (%) (Auto) , Eosinophils (%) (Auto) , Basophils (%) (Auto) , Differential Total Cells Counted 100, Neutrophils % ( Manual) 61, Lymphocytes % (Manual) 29, Monocytes % (Manual) 8, Eosinophils % ( Manual) 1, Basophils % (Manual) 1, Band Neutrophils 0, Platelet Estimate Adequate, Platelet Morphology Normal, Hypochromasia 1+, Anisocytosis 1+ 06/27/18 04:00: Sodium Level 143, Potassium Level 3.9, Chloride Level 111H, Carbon Dioxide Level 25, Anion Gap 7, Blood Urea Nitrogen 33H, Creatinine 0.7, Estimat Glomerular Filtration Rate > 60, Glucose Level 159H, Uric Acid 5.3, Calcium Level 7.7L, Phosphorus Level 3.2, Magnesium Level 1.9, Iron Level 20L, Total Iron Binding Capacity 244L, Percent Iron Saturation 8L, Unsaturated Iron Binding 224, Ferritin 44, Total Bilirubin 0.3, Aspartate Amino Transf (AST/SGOT ) 50H, Alanine Aminotransferase (ALT/SGPT) 45, Alkaline Phosphatase 91, Pro-B- Type Natriuretic Peptide 24, Total Protein 5.6L, Albumin 2.4L, Globulin 3.2, Albumin/Globulin Ratio 0.8L, Triglycerides Level 186H, Cholesterol Level 119, LDL Cholesterol 53, HDL Cholesterol 29L, Cholesterol/HDL Ratio 4.1, Lipase 226, Vitamin B12 Level 397, Folate 19.8, Thyroid Stimulating Hormone (TSH) 0.343L 06/27/18 06:55: White Blood Count 9.9, Red Blood Count 2.63L, Hemoglobin 7.0L, Hematocrit 22.3L , Mean Corpuscular Volume 85, Mean Corpuscular Hemoglobin 26.8L, Mean Corpuscular Hemoglobin Concent 31.6L, Red Cell Distribution Width 16.4H, Platelet Count 167, Mean Platelet Volume 6.9, Neutrophils (%) (Auto) , Lymphocytes (%) (Auto) , Monocytes (%) (Auto) , Eosinophils (%) (Auto) , Basophils (%) (Auto) , Differential Total Cells Counted 100, Neutrophils % ( Manual) 60, Lymphocytes % (Manual) 30, Monocytes % (Manual) 7, Eosinophils % ( Manual) 2, Basophils % (Manual) 1, Band Neutrophils 0, Platelet Estimate Adequate, Platelet Morphology Normal, Hypochromasia 3+, Anisocytosis 1+, Hemoglobin A1c 7.6H, Anti-Nuclear Antibody Screen [Pending], Hepatitis A IgM Antibody [Pending], Hepatitis B Surface Antigen [Pending], Hepatitis B Core IgM Antibody [Pending], Hepatitis C Antibody [Pending] Height (Feet): 5 Height (Inches): 5.00 Weight (Pounds): 218 Objective WDWN Seen in nuclear medicine department Ct Deras MD Jun 27, 2018 18:18
[2018-06-27 20:00] VITALS: BP 132/58
[2018-06-28] VITALS: BP 135/62
[2018-06-28] MEDS: Octreotide Acetate 500 MCG in Sodium Chloride 500ML 499 ML IV SCH (03:50)
[2018-06-28] MEDS: Metoclopramide 10mg/2ml Inj IVP SCH ×4 (03:50→22:40)
[2018-06-28 04:00] VITALS: BP 151/60
[2018-06-28 07:04] LABS: HEMATOCRIT 23.5 % (37.0-47.0); HEMOGLOBIN 7.5 G/DL (12.0-16.0); MEAN CORPUSCULAR VOLUME 85 FL (80-99); PLATELET COUNT 168 K/UL (150-450); RED BLOOD COUNT 2.76 M/UL (4.20-5.40); RED CELL DISTRIBUTION WIDTH 16.8 % (11.6-14.8); WHITE BLOOD COUNT 10.8 K/UL (4.8-10.8)
[2018-06-28 08:00] VITALS: BP 124/63
[2018-06-28] MEDS: Pantoprazole Inj IVP SCH ×2 (08:21→21:47)
[2018-06-28] MEDS: cefTRIAXone 1 GM in D5W 55 ML IVPB SCH (08:32)
--- NOTE | 2018-06-28 09:28 | General Progress Note ---
Assessment/Plan Status: stable, unchanged Assessment/Plan # Anemia due to Gi bleed with abdominal pain --> has been seen surgical service as well as Gi team, endoscopy as needed --> anemia workup has been reviewed and venofer if ferritin is >50 --> transfuse to hgb goal >7 --> CURRENTLY Hgb at 7.5, closely monitor # Coagulopathy in the setting of liver cirrhosis and splenomegaly --> vit K 10mg sq x 1 given --> FFP if the INR >1.5, and she continues to bleed # Leukocytosis likely reactive process to bleed --> monitor for resolution, will improve as bleed resolves --> CURRENTLY WBC wnl at 10.5 --> Currently on IV ceftriaxone # Abdominal pain likely related to varices, portal htn, etc # Portal HTN, varcies on egd noted by GI doc The time the note was entered does not necessarily correspond to the time the patient was seen. Subjective Date patient seen: Jun 28, 2018 ROS Limited/Unobtainable: Yes Gastrointestinal/Abdominal: Reports: abdominal pain Hematologic/Lymphatic: Reports: anemia Allergies: Coded Allergies: PENICILLINS (Unverified Allergy, Unknown, 06/25/18) All Systems: reviewed and negative except above Subjective Pt awake and alert. No acute events. Hgb at 7.5, closely monitor. Objective Last 24 Hour Vital Signs Date Time Temp Pulse Resp B/P (MAP) Pulse Ox O2 Delivery O2 Flow Rate FiO2 06/28/18 08:39 Room Air 06/28/18 08:01 97 06/28/18 08:00 99.9 95 18 124/63 (83) 92 99.9 06/28/18 04:04 77 06/28/18 04:00 Room Air 06/28/18 04:00 95.5 93 17 151/60 (90) 92 95.5 06/28/18 00:00 Room Air 06/28/18 00:00 98.1 86 22 135/62 (86) 94 98.1 06/27/18 23:27 81 06/27/18 20:00 98.3 88 20 132/58 (82) 96 98.3 06/27/18 20:00 90 06/27/18 20:00 Room Air 06/27/18 18:07 98.2 06/27/18 16:00 87 06/27/18 16:00 98.2 91 19 129/51 (77) 95 98.2 06/27/18 16:00 Room Air 06/27/18 12:00 Room Air 06/27/18 12:00 97 06/27/18 11:30 98.2 89 20 141/49 (79) 95 98.2 Intake and Output 06/27/18 06/28/18 19:00 07:00 Intake Total 800 ml 279.2 ml Output Total 1200 ml 400 ml Balance -400 ml -120.8 ml Intake Oral 50 ml IV Total 750 ml 279.2 ml Output Urine Total 1200 ml 400 ml # Bowel Movements 2 Laboratory Tests 06/28/18 06:10: White Blood Count 10.8, Red Blood Count 2.76L, Hemoglobin 7.5L, Hematocrit 23.5L , Mean Corpuscular Volume 85, Mean Corpuscular Hemoglobin 27.1, Mean Corpuscular Hemoglobin Concent 31.9L, Red Cell Distribution Width 16.8H, Platelet Count 168, Mean Platelet Volume 6.6, Neutrophils (%) (Auto) , Lymphocytes (%) (Auto) , Monocytes (%) (Auto) , Eosinophils (%) (Auto) , Basophils (%) (Auto) , Neutrophils % (Manual) [Pending], Lymphocytes % (Manual) [Pending], Platelet Estimate [Pending], Platelet Morphology [Pending] Height (Feet): 5 Height (Inches): 5.00 Weight (Pounds): 218 General Appearance: no apparent distress EENT: PERRL/EOMI Neck: normal alignment Cardiovascular: normal peripheral pulses Respiratory/Chest: no respiratory distress Abdomen: tender Ashvin Martin MD Jun 28, 2018 09:28
--- NOTE | 2018-06-28 11:06 | Infectious Diseases Prog Note ---
Assessment/Plan Assessment/Plan A: Leukocytosis resolved Upper GI bleeding Esophageal Varices Anemia Cirrhosis DM P: Started on Ceftriaxone because of increased risk of infection Subjective ROS Limited/Unobtainable: No Constitutional: Reports: no symptoms HEENT: Reports: other - headache Respiratory: Reports: no symptoms Gastrointestinal/Abdominal: Reports: no symptoms, other - on clear liquid diet Genitourinary: Reports: no symptoms Allergies: Coded Allergies: PENICILLINS (Unverified Allergy, Unknown, 06/25/18) Objective Vital Signs Last 24 Hour Vital Signs Date Time Temp Pulse Resp B/P (MAP) Pulse Ox O2 Delivery O2 Flow Rate FiO2 06/28/18 08:39 Room Air 06/28/18 08:01 97 06/28/18 08:00 99.9 95 18 124/63 (83) 92 99.9 06/28/18 04:04 77 06/28/18 04:00 Room Air 06/28/18 04:00 95.5 93 17 151/60 (90) 92 95.5 06/28/18 00:00 Room Air 06/28/18 00:00 98.1 86 22 135/62 (86) 94 98.1 06/27/18 23:27 81 06/27/18 20:00 98.3 88 20 132/58 (82) 96 98.3 06/27/18 20:00 90 06/27/18 20:00 Room Air 06/27/18 18:07 98.2 06/27/18 16:00 87 06/27/18 16:00 98.2 91 19 129/51 (77) 95 98.2 06/27/18 16:00 Room Air 06/27/18 12:00 Room Air 06/27/18 12:00 97 06/27/18 11:30 98.2 89 20 141/49 (79) 95 98.2 Height (Feet): 5 Height (Inches): 5.00 Weight (Pounds): 218 General Appearance: no acute distress HEENT: mucous membranes moist Respiratory/Chest: lungs clear Cardiovascular: normal rate Abdomen: soft, non tender Extremities: no edema Neurologic/Psychiatric: alert, oriented x 3, responsive Laboratory Tests Test 06/28/18 06:10 White Blood Count 10.8 K/UL (4.8-10.8) Red Blood Count 2.76 M/UL (4.20-5.40) L Hemoglobin 7.5 G/DL (12.0-16.0) L Hematocrit 23.5 % (37.0-47.0) L Mean Corpuscular Volume 85 FL (80-99) Mean Corpuscular Hemoglobin 27.1 PG (27.0-31.0) Mean Corpuscular Hemoglobin Concent 31.9 G/DL (32.0-36.0) L Red Cell Distribution Width 16.8 % (11.6-14.8) H Platelet Count 168 K/UL (150-450) Mean Platelet Volume 6.6 FL (6.5-10.1) Neutrophils (%) (Auto) % (45.0-75.0) Lymphocytes (%) (Auto) % (20.0-45.0) Monocytes (%) (Auto) % (1.0-10.0) Eosinophils (%) (Auto) % (0.0-3.0) Basophils (%) (Auto) % (0.0-2.0) Differential Total Cells Counted 100 Neutrophils % (Manual) 79 % (45-75) H Lymphocytes % (Manual) 13 % (20-45) L Monocytes % (Manual) 6 % (1-10) Eosinophils % (Manual) 1 % (0-3) Basophils % (Manual) 0 % (0-2) Band Neutrophils 1 % (0-8) Nucleated Red Blood Cells 1 /100 WBC Platelet Estimate Adequate Platelet Morphology Normal Polychromasia 1+ Hypochromasia 1+ Anisocytosis 1+ Current Medications Medications (Trade) Dose Ordered Sig/Sushila Route PRN Reason Start Time Stop Time Status Last Admin Dose Admin Acetaminophen (Tylenol) 500 mg Q4H PRN ORAL Mild Pain/Temp > 100.5 06/26/18 03:00 07/25/18 14:59 06/27/18 21:53 Ceftriaxone Sodium 1 gm/ Dextrose 55 ml @ 110 mls/hr DAILY IVPB 06/27/18 09:00 07/04/18 08:59 06/28/18 08:32 Clonidine HCl (Catapres Tab) 0.1 mg Q6H PRN ORAL For High Blood Pressure 06/26/18 03:00 07/25/18 14:59 Dextrose (Dextrose 50%) 50 ml STAT PRN IV hypoglycemia 06/26/18 06:00 07/25/18 14:59 Metoclopramide HCl (Reglan) 10 mg Q6H IVP 06/26/18 04:30 07/25/18 22:29 06/28/18 10:08 Octreotide Acetate 500 mcg/ Sodium Chloride 500 ml @ 25 mls/hr Q20H IV 06/26/18 12:00 07/26/18 11:59 06/28/18 03:50 Pantoprazole (Protonix) 40 mg EVERY 12 HOURS IVP 06/26/18 00:15 07/26/18 00:14 06/28/18 08:21 Sodium Chloride 1,000 ml @ 50 mls/hr Q20H IV 06/28/18 08:20 07/25/18 08:19 06/28/18 08:21 Ignacio Damico MD Jun 28, 2018 11:06
--- NOTE | 2018-06-28 11:08 | General Surgery Progress Note ---
General Surgery-Progress Note Subjective Symptoms: improved, pain absent, tolerating diet, passing flatus, BM Additional Comments doing well. on complaints Objective Last 24 Hour Vital Signs Date Time Temp Pulse Resp B/P (MAP) Pulse Ox O2 Delivery O2 Flow Rate FiO2 06/28/18 08:39 Room Air 06/28/18 08:01 97 06/28/18 08:00 99.9 95 18 124/63 (83) 92 99.9 06/28/18 04:04 77 06/28/18 04:00 Room Air 06/28/18 04:00 95.5 93 17 151/60 (90) 92 95.5 06/28/18 00:00 Room Air 06/28/18 00:00 98.1 86 22 135/62 (86) 94 98.1 06/27/18 23:27 81 06/27/18 20:00 98.3 88 20 132/58 (82) 96 98.3 06/27/18 20:00 90 06/27/18 20:00 Room Air 06/27/18 18:07 98.2 06/27/18 16:00 87 06/27/18 16:00 98.2 91 19 129/51 (77) 95 98.2 06/27/18 16:00 Room Air 06/27/18 12:00 Room Air 06/27/18 12:00 97 06/27/18 11:30 98.2 89 20 141/49 (79) 95 98.2 I&O Intake and Output 06/27/18 06/28/18 19:00 07:00 Intake Total 800 ml 279.2 ml Output Total 1200 ml 400 ml Balance -400 ml -120.8 ml Intake Oral 50 ml IV Total 750 ml 279.2 ml Output Urine Total 1200 ml 400 ml # Bowel Movements 2 Drains: none Cardiovascular: RSR Respiratory: clear Abdomen: soft, flat, non-tender, present bowel sounds Extremities: no edema, no tenderness, no cyanosis Laboratory Tests Test 06/28/18 06:10 White Blood Count 10.8 K/UL (4.8-10.8) Red Blood Count 2.76 M/UL (4.20-5.40) L Hemoglobin 7.5 G/DL (12.0-16.0) L Hematocrit 23.5 % (37.0-47.0) L Mean Corpuscular Volume 85 FL (80-99) Mean Corpuscular Hemoglobin 27.1 PG (27.0-31.0) Mean Corpuscular Hemoglobin Concent 31.9 G/DL (32.0-36.0) L Red Cell Distribution Width 16.8 % (11.6-14.8) H Platelet Count 168 K/UL (150-450) Mean Platelet Volume 6.6 FL (6.5-10.1) Neutrophils (%) (Auto) % (45.0-75.0) Lymphocytes (%) (Auto) % (20.0-45.0) Monocytes (%) (Auto) % (1.0-10.0) Eosinophils (%) (Auto) % (0.0-3.0) Basophils (%) (Auto) % (0.0-2.0) Differential Total Cells Counted 100 Neutrophils % (Manual) 79 % (45-75) H Lymphocytes % (Manual) 13 % (20-45) L Monocytes % (Manual) 6 % (1-10) Eosinophils % (Manual) 1 % (0-3) Basophils % (Manual) 0 % (0-2) Band Neutrophils 1 % (0-8) Nucleated Red Blood Cells 1 /100 WBC Platelet Estimate Adequate Platelet Morphology Normal Polychromasia 1+ Hypochromasia 1+ Anisocytosis 1+ Plan Problems: (1) Abdominal pain Assessment & Plan: abdominal discomfort likely from enteritis. CT with questionable cholecystitis HIDA Negative. no acute surgical intervention planned. will follow with recs. (2) GI bleed Assessment & Plan: coffee ground emesis. EGD with portal htn, barretts. and varices. diet as tolerated trend H/H - stable no acute surgical intervention planned work up for portal ht will follow with recs. thank you for this consultation Erlin Miller Jun 28, 2018 11:08
[2018-06-28 12:00] VITALS: BP 140/66
--- NOTE | 2018-06-28 12:10 | General Progress Note ---
Assessment/Plan Problem List: (1) Dehydration ICD Codes: E86.0 - Dehydration SNOMED: 47576864 (2) GI bleed ICD Codes: K92.2 - Gastrointestinal hemorrhage, unspecified SNOMED: 65105671 (3) Muscle weakness (generalized) ICD Codes: M62.81 - Muscle weakness (generalized) SNOMED: 45205750, 36240991 (4) Abdominal pain ICD Codes: R10.9 - Unspecified abdominal pain SNOMED: 11094849 Qualifiers: Qualified Codes: R10.84 - Generalized abdominal pain (5) Bloody emesis ICD Codes: K92.0 - Hematemesis SNOMED: 1944203 (6) Coffee ground emesis ICD Codes: K92.0 - Hematemesis SNOMED: 12645580, 648952611 (7) Diabetes mellitus ICD Codes: E11.9 - Type 2 diabetes mellitus without complications SNOMED: 98688124 Status: progressing Assessment/Plan upper gi bleed discuss w gi dr reviewed chart afebrile moniter for hemetemesis Subjective ROS Limited/Unobtainable: Yes Constitutional: Reports: no symptoms Respiratory: Reports: no symptoms Allergies: Coded Allergies: PENICILLINS (Unverified Allergy, Unknown, 06/25/18) Objective Last 24 Hour Vital Signs Date Time Temp Pulse Resp B/P (MAP) Pulse Ox O2 Delivery O2 Flow Rate FiO2 06/28/18 08:39 Room Air 06/28/18 08:01 97 06/28/18 08:00 99.9 95 18 124/63 (83) 92 99.9 06/28/18 04:04 77 06/28/18 04:00 Room Air 06/28/18 04:00 95.5 93 17 151/60 (90) 92 95.5 06/28/18 00:00 Room Air 06/28/18 00:00 98.1 86 22 135/62 (86) 94 98.1 06/27/18 23:27 81 06/27/18 20:00 98.3 88 20 132/58 (82) 96 98.3 06/27/18 20:00 90 06/27/18 20:00 Room Air 06/27/18 18:07 98.2 06/27/18 16:00 87 06/27/18 16:00 98.2 91 19 129/51 (77) 95 98.2 06/27/18 16:00 Room Air Intake and Output 06/27/18 06/28/18 19:00 07:00 Intake Total 800 ml 279.2 ml Output Total 1200 ml 400 ml Balance -400 ml -120.8 ml Intake Oral 50 ml IV Total 750 ml 279.2 ml Output Urine Total 1200 ml 400 ml # Bowel Movements 2 Laboratory Tests 06/28/18 06:10: White Blood Count 10.8, Red Blood Count 2.76L, Hemoglobin 7.5L, Hematocrit 23.5L , Mean Corpuscular Volume 85, Mean Corpuscular Hemoglobin 27.1, Mean Corpuscular Hemoglobin Concent 31.9L, Red Cell Distribution Width 16.8H, Platelet Count 168, Mean Platelet Volume 6.6, Neutrophils (%) (Auto) , Lymphocytes (%) (Auto) , Monocytes (%) (Auto) , Eosinophils (%) (Auto) , Basophils (%) (Auto) , Differential Total Cells Counted 100, Neutrophils % ( Manual) 79H, Lymphocytes % (Manual) 13L, Monocytes % (Manual) 6, Eosinophils % ( Manual) 1, Basophils % (Manual) 0, Band Neutrophils 1, Nucleated Red Blood Cells 1, Platelet Estimate Adequate, Platelet Morphology Normal, Polychromasia 1 +, Hypochromasia 1+, Anisocytosis 1+ Height (Feet): 5 Height (Inches): 5.00 Weight (Pounds): 218 Neck: supple Cardiovascular: normal rate Respiratory/Chest: lungs clear Abdomen: soft Isabel Miller MD Jun 28, 2018 12:10
--- NOTE | 2018-06-28 13:31 | Nephrology Progress Note ---
Assessment/Plan Problem List: (1) Dehydration (2) GI bleed (3) Abdominal pain (4) Diabetes mellitus Assessment GI bleed due to varices/ had endoscopy and banding Anemia Dehydration / GI bleed: leading to Azotemia DM PCN Allergy Plan Hydrate- Monitor H&H transfuse as needed. Monitor Renal parameters IV Venofer Per orders Per GI Subjective ROS Limited/Unobtainable: No Constitutional: Reports: malaise Objective Objective Last 24 Hour Vital Signs Date Time Temp Pulse Resp B/P (MAP) Pulse Ox O2 Delivery O2 Flow Rate FiO2 06/28/18 12:27 Room Air 06/28/18 12:00 100.3 92 18 140/66 (90) 94 100.3 06/28/18 12:00 99 06/28/18 08:39 Room Air 06/28/18 08:01 97 06/28/18 08:00 99.9 95 18 124/63 (83) 92 99.9 06/28/18 04:04 77 06/28/18 04:00 Room Air 06/28/18 04:00 95.5 93 17 151/60 (90) 92 95.5 06/28/18 00:00 Room Air 06/28/18 00:00 98.1 86 22 135/62 (86) 94 98.1 06/27/18 23:27 81 06/27/18 20:00 98.3 88 20 132/58 (82) 96 98.3 06/27/18 20:00 90 06/27/18 20:00 Room Air 06/27/18 18:07 98.2 06/27/18 16:00 87 06/27/18 16:00 98.2 91 19 129/51 (77) 95 98.2 06/27/18 16:00 Room Air Intake and Output 06/27/18 06/28/18 19:00 07:00 Intake Total 800 ml 279.2 ml Output Total 1200 ml 400 ml Balance -400 ml -120.8 ml Intake Oral 50 ml IV Total 750 ml 279.2 ml Output Urine Total 1200 ml 400 ml # Bowel Movements 2 Laboratory Tests 06/28/18 06:10: White Blood Count 10.8, Red Blood Count 2.76L, Hemoglobin 7.5L, Hematocrit 23.5L , Mean Corpuscular Volume 85, Mean Corpuscular Hemoglobin 27.1, Mean Corpuscular Hemoglobin Concent 31.9L, Red Cell Distribution Width 16.8H, Platelet Count 168, Mean Platelet Volume 6.6, Neutrophils (%) (Auto) , Lymphocytes (%) (Auto) , Monocytes (%) (Auto) , Eosinophils (%) (Auto) , Basophils (%) (Auto) , Differential Total Cells Counted 100, Neutrophils % ( Manual) 79H, Lymphocytes % (Manual) 13L, Monocytes % (Manual) 6, Eosinophils % ( Manual) 1, Basophils % (Manual) 0, Band Neutrophils 1, Nucleated Red Blood Cells 1, Platelet Estimate Adequate, Platelet Morphology Normal, Polychromasia 1 +, Hypochromasia 1+, Anisocytosis 1+ Height (Feet): 5 Height (Inches): 5.00 Weight (Pounds): 218 General Appearance: no apparent distress Objective PE not changed Ryley Guadalupe MD Jun 28, 2018 13:31
[2018-06-28] MEDS ORDERED: Tubing IV Secondary IV ONE (15:27)
[2018-06-28] MEDS ORDERED: NS 275ml ONE (15:29)
[2018-06-28] MEDS ORDERED: 1/2 NS 1000ml IV ONE (15:29)
[2018-06-28 16:00] VITALS: BP 131/67
[2018-06-28] MEDS: NovoLOG Insulin Flexpen SUBQ SCH ×2 (18:34→21:50)
[2018-06-28 20:00] VITALS: BP 126/60
--- NOTE | 2018-06-28 20:43 | General Progress Note ---
Assessment/Plan Assessment/Plan Assessment - chronic abd pain - cirrhosis, possibly secondary to MEJIA - obesity - DM - UGIB due to varix, banded Recommendations - advance to solids in am - d/c sandostatin in am - d/c reglan in am - continue PPI BID - Transfusion per Heme - can aim to d/c home Sunday Subjective Allergies: Coded Allergies: PENICILLINS (Unverified Allergy, Unknown, 06/25/18) Subjective pain better tolerating clears no further vomiting stools black Objective Last 24 Hour Vital Signs Date Time Temp Pulse Resp B/P (MAP) Pulse Ox O2 Delivery O2 Flow Rate FiO2 06/28/18 16:10 95 06/28/18 16:00 99.7 93 20 131/67 (88) 94 99.7 06/28/18 16:00 Room Air 06/28/18 12:27 Room Air 06/28/18 12:00 100.3 92 18 140/66 (90) 94 100.3 06/28/18 12:00 99 06/28/18 08:39 Room Air 06/28/18 08:01 97 06/28/18 08:00 99.9 95 18 124/63 (83) 92 99.9 06/28/18 04:04 77 06/28/18 04:00 Room Air 06/28/18 04:00 95.5 93 17 151/60 (90) 92 95.5 06/28/18 00:00 Room Air 06/28/18 00:00 98.1 86 22 135/62 (86) 94 98.1 06/27/18 23:27 81 Intake and Output 06/27/18 06/28/18 19:00 07:00 Intake Total 800 ml 279.2 ml Output Total 1200 ml 400 ml Balance -400 ml -120.8 ml Intake Oral 50 ml IV Total 750 ml 279.2 ml Output Urine Total 1200 ml 400 ml # Bowel Movements 2 Laboratory Tests 06/28/18 06:10: White Blood Count 10.8, Red Blood Count 2.76L, Hemoglobin 7.5L, Hematocrit 23.5L , Mean Corpuscular Volume 85, Mean Corpuscular Hemoglobin 27.1, Mean Corpuscular Hemoglobin Concent 31.9L, Red Cell Distribution Width 16.8H, Platelet Count 168, Mean Platelet Volume 6.6, Neutrophils (%) (Auto) , Lymphocytes (%) (Auto) , Monocytes (%) (Auto) , Eosinophils (%) (Auto) , Basophils (%) (Auto) , Differential Total Cells Counted 100, Neutrophils % ( Manual) 79H, Lymphocytes % (Manual) 13L, Monocytes % (Manual) 6, Eosinophils % ( Manual) 1, Basophils % (Manual) 0, Band Neutrophils 1, Nucleated Red Blood Cells 1, Platelet Estimate Adequate, Platelet Morphology Normal, Polychromasia 1 +, Hypochromasia 1+, Anisocytosis 1+ Height (Feet): 5 Height (Inches): 5.00 Weight (Pounds): 218 Objective WDWN Seen in nuclear medicine department Ct Deras MD Jun 28, 2018 20:43
[2018-06-29] VITALS: BP 125/88
[2018-06-29] MEDS ORDERED: Octreotide Acetate 500 MCG in Sodium Chloride 500ML 499 ML IV SCH ×2
[2018-06-29 04:00] VITALS: BP 130/61
[2018-06-29] MEDS: Metoclopramide 10mg/2ml Inj IVP SCH (04:19)
[2018-06-29] MEDS: NovoLOG Insulin Flexpen SUBQ SCH ×4 (06:14→21:09)
[2018-06-29 08:00] VITALS: BP 124/47
[2018-06-29] MEDS: Pantoprazole Inj IVP SCH ×2 (09:11→21:07)
[2018-06-29] MEDS: cefTRIAXone 1 GM in D5W 55 ML IVPB SCH (10:38)
--- NOTE | 2018-06-29 11:17 | Nephrology Progress Note ---
Assessment/Plan Problem List: (1) Dehydration (2) GI bleed (3) Abdominal pain (4) Diabetes mellitus Assessment GI bleed due to varices/ had endoscopy and banding Anemia Dehydration / GI bleed: leading to Azotemia DM PCN Allergy Plan Hydrate- Monitor H&H transfuse as needed. Monitor Renal parameters IV Venofer Per orders Per GI Subjective ROS Limited/Unobtainable: No Constitutional: Reports: malaise Objective Objective Last 24 Hour Vital Signs Date Time Temp Pulse Resp B/P (MAP) Pulse Ox O2 Delivery O2 Flow Rate FiO2 06/29/18 08:00 Room Air 06/29/18 08:00 98.2 85 20 124/47 (72) 95 98.2 06/29/18 08:00 74 06/29/18 04:00 98.4 87 20 130/61 (84) 95 98.4 06/29/18 04:00 84 06/29/18 04:00 Room Air 06/29/18 00:00 Room Air 06/29/18 00:00 88 06/29/18 00:00 98.3 88 20 125/88 (100) 92 98.3 06/28/18 20:00 88 06/28/18 20:00 Room Air 06/28/18 20:00 99.5 94 20 126/60 (82) 91 99.5 06/28/18 16:10 95 06/28/18 16:00 99.7 93 20 131/67 (88) 94 99.7 06/28/18 16:00 Room Air 06/28/18 12:27 Room Air 06/28/18 12:00 100.3 92 18 140/66 (90) 94 100.3 06/28/18 12:00 99 Intake and Output 06/28/18 06/29/18 19:00 07:00 Intake Total 1205 ml 925 ml Output Total 750 ml 1600 ml Balance 455 ml -675 ml Intake Oral 1020 ml IV Total 185 ml 925 ml Output Urine Total 750 ml 1600 ml # Voids 1 1 # Bowel Movements 4 3 Height (Feet): 5 Height (Inches): 5.00 Weight (Pounds): 218 General Appearance: no apparent distress Cardiovascular: normal rate Respiratory/Chest: lungs clear Abdomen: soft Objective PE not changed Ryley Guadalupe MD Jun 29, 2018 11:17
--- NOTE | 2018-06-29 11:34 | Infectious Diseases Prog Note ---
Assessment/Plan Assessment/Plan antibiotics : ceftriaxone A 1. colitis 2. diabetes mellitus 3. cirrhosis 4. GI bleeding 5. esophageal varices P 1. continue ceftriaxone 2. will follow up cultures Subjective Constitutional: Denies: fever, chills Respiratory: Reports: shortness of breath, dry cough Gastrointestinal/Abdominal: Denies: nausea, vomiting, diarrhea Musculoskeletal: Reports: pain - in left abdomen Allergies: Coded Allergies: PENICILLINS (Unverified Allergy, Unknown, 06/25/18) Objective Vital Signs Last 24 Hour Vital Signs Date Time Temp Pulse Resp B/P (MAP) Pulse Ox O2 Delivery O2 Flow Rate FiO2 06/29/18 08:00 Room Air 06/29/18 08:00 98.2 85 20 124/47 (72) 95 98.2 06/29/18 08:00 74 06/29/18 04:00 98.4 87 20 130/61 (84) 95 98.4 06/29/18 04:00 84 06/29/18 04:00 Room Air 06/29/18 00:00 Room Air 06/29/18 00:00 88 06/29/18 00:00 98.3 88 20 125/88 (100) 92 98.3 06/28/18 20:00 88 06/28/18 20:00 Room Air 06/28/18 20:00 99.5 94 20 126/60 (82) 91 99.5 06/28/18 16:10 95 06/28/18 16:00 99.7 93 20 131/67 (88) 94 99.7 06/28/18 16:00 Room Air 06/28/18 12:27 Room Air 06/28/18 12:00 100.3 92 18 140/66 (90) 94 100.3 06/28/18 12:00 99 Height (Feet): 5 Height (Inches): 5.00 Weight (Pounds): 218 Respiratory/Chest: lungs clear Cardiovascular: normal rate, regular rhythm, no gallop/murmur Abdomen: tender - in LLQ Extremities: no edema Microbiology Date/Time Source Procedure Growth Status 06/28/18 02:45 Stool Stool Culture - Preliminary NORMAL FECAL JACI. Resulted Current Medications Medications (Trade) Dose Ordered Sig/Sushila Route PRN Reason Start Time Stop Time Status Last Admin Dose Admin Acetaminophen (Tylenol) 500 mg Q4H PRN ORAL Mild Pain/Temp > 100.5 06/26/18 03:00 07/25/18 14:59 06/27/18 21:53 Ceftriaxone Sodium 1 gm/ Dextrose 55 ml @ 110 mls/hr DAILY IVPB 06/27/18 09:00 07/04/18 08:59 06/29/18 10:38 Clonidine HCl (Catapres Tab) 0.1 mg Q6H PRN ORAL For High Blood Pressure 06/26/18 03:00 07/25/18 14:59 Dextrose (Dextrose 50%) 25 ml STAT PRN IV Hypoglycemia 06/28/18 17:15 07/28/18 17:14 Dextrose (Dextrose 50%) 50 ml STAT PRN IV hypoglycemia 06/26/18 06:00 07/25/18 14:59 Dextrose (Dextrose 50%) 50 ml STAT PRN IV Hypoglycemia 06/28/18 17:15 07/28/18 17:14 Insulin Aspart (NovoLOG) BEFORE MEALS AND HS SUBQ 06/28/18 17:30 07/28/18 17:29 06/29/18 06:14 Pantoprazole (Protonix) 40 mg EVERY 12 HOURS IVP 06/26/18 00:15 07/26/18 00:14 06/29/18 09:11 Sodium Chloride 1,000 ml @ 50 mls/hr Q20H IV 06/28/18 08:20 07/25/18 08:19 06/29/18 04:07 CANDE TRAVIS Jun 29, 2018 11:34
[2018-06-29 12:00] VITALS: BP 120/69
--- NOTE | 2018-06-29 12:21 | General Progress Note ---
Assessment/Plan Assessment/Plan Assessment - chronic abd pain - cirrhosis, possibly secondary to MEJIA - obesity - DM - UGIB due to varix, banded Recommendations - advance to solids in am - off sandostatin - off reglan in am - continue PPI BID - Transfusion per Heme - can aim to d/c home Sunday Subjective ROS Limited/Unobtainable: Yes Allergies: Coded Allergies: PENICILLINS (Unverified Allergy, Unknown, 06/25/18) Subjective c/o abd pain Objective Last 24 Hour Vital Signs Date Time Temp Pulse Resp B/P (MAP) Pulse Ox O2 Delivery O2 Flow Rate FiO2 06/29/18 08:00 Room Air 06/29/18 08:00 98.2 85 20 124/47 (72) 95 98.2 06/29/18 08:00 74 06/29/18 04:00 98.4 87 20 130/61 (84) 95 98.4 06/29/18 04:00 84 06/29/18 04:00 Room Air 06/29/18 00:00 Room Air 06/29/18 00:00 88 06/29/18 00:00 98.3 88 20 125/88 (100) 92 98.3 06/28/18 20:00 88 06/28/18 20:00 Room Air 06/28/18 20:00 99.5 94 20 126/60 (82) 91 99.5 06/28/18 16:10 95 06/28/18 16:00 99.7 93 20 131/67 (88) 94 99.7 06/28/18 16:00 Room Air 06/28/18 12:27 Room Air Intake and Output 06/28/18 06/29/18 19:00 07:00 Intake Total 1205 ml 925 ml Output Total 750 ml 1600 ml Balance 455 ml -675 ml Intake Oral 1020 ml IV Total 185 ml 925 ml Output Urine Total 750 ml 1600 ml # Voids 1 1 # Bowel Movements 4 3 Laboratory Tests 06/29/18 11:45: C-Reactive Protein, Quantitative [Pending] Height (Feet): 5 Height (Inches): 5.00 Weight (Pounds): 218 General Appearance: alert EENT: normal ENT inspection Neck: supple Cardiovascular: normal rate Respiratory/Chest: decreased breath sounds Abdomen: normal bowel sounds, non tender, soft Extremities: non-tender Vosoghi,Rohith MD Jun 29, 2018 12:21
--- NOTE | 2018-06-29 13:57 | General Surgery Progress Note ---
General Surgery-Progress Note Subjective Symptoms: improved, pain absent, tolerating diet, passing flatus, BM Additional Comments states she feels well. no acute events. Objective Last 24 Hour Vital Signs Date Time Temp Pulse Resp B/P (MAP) Pulse Ox O2 Delivery O2 Flow Rate FiO2 06/29/18 12:58 84 06/29/18 12:00 Room Air 06/29/18 12:00 97.7 82 20 120/69 (86) 97 97.7 06/29/18 08:00 Room Air 06/29/18 08:00 98.2 85 20 124/47 (72) 95 98.2 06/29/18 08:00 74 06/29/18 04:00 98.4 87 20 130/61 (84) 95 98.4 06/29/18 04:00 84 06/29/18 04:00 Room Air 06/29/18 00:00 Room Air 06/29/18 00:00 88 06/29/18 00:00 98.3 88 20 125/88 (100) 92 98.3 06/28/18 20:00 88 06/28/18 20:00 Room Air 06/28/18 20:00 99.5 94 20 126/60 (82) 91 99.5 06/28/18 16:10 95 06/28/18 16:00 99.7 93 20 131/67 (88) 94 99.7 06/28/18 16:00 Room Air I&O Intake and Output 06/28/18 06/29/18 19:00 07:00 Intake Total 1205 ml 925 ml Output Total 750 ml 1600 ml Balance 455 ml -675 ml Intake Oral 1020 ml IV Total 185 ml 925 ml Output Urine Total 750 ml 1600 ml # Voids 1 1 # Bowel Movements 4 3 Drains: none Cardiovascular: RSR Respiratory: clear Abdomen: soft, flat, non-tender, present bowel sounds Extremities: no cyanosis Laboratory Tests Test 06/29/18 11:45 C-Reactive Protein, Quantitative 3.3 mg/dL (0.00-0.90) H Plan Problems: (1) Abdominal pain Assessment & Plan: abdominal discomfort likely from enteritis. CT with questionable cholecystitis HIDA Negative. no acute surgical intervention planned. will follow with recs. (2) GI bleed Assessment & Plan: coffee ground emesis. EGD with portal htn, barretts. and varices. diet as tolerated trend H/H - stable no acute surgical intervention planned outpatient follow up with her PCP and GI for monitoring and care PPI BID okay to d/c from surgical standpoint appreciate GI input will follow with recs. thank you for this consultation Erlin Miller Jun 29, 2018 13:57
--- NOTE | 2018-06-29 14:26 | General Progress Note ---
Assessment/Plan Status: stable Assessment/Plan # Anemia due to Gi bleed with abdominal pain --> has been seen surgical service as well as Gi team, endoscopy as needed --> anemia workup has been reviewed and venofer if ferritin is >50 --> transfuse to hgb goal >7 --> CURRENT Hgb at 7.5, closely monitor # Coagulopathy in the setting of liver cirrhosis and splenomegaly --> vit K 10mg sq x 1 given --> FFP if the INR >1.5, and she continues to bleed # Leukocytosis likely reactive process to bleed --> monitor for resolution, will improve as bleed resolves --> CURRENTLY WBC wnl at 10.5 --> Currently on IV ceftriaxone # Abdominal pain likely related to varices, portal htn, etc # Portal HTN, varcies on egd noted by GI doc The time the note was entered does not necessarily correspond to the time the patient was seen. Subjective Date patient seen: Jun 29, 2018 ROS Limited/Unobtainable: Yes Hematologic/Lymphatic: Reports: anemia Allergies: Coded Allergies: PENICILLINS (Unverified Allergy, Unknown, 06/25/18) All Systems: reviewed and negative except above Subjective Pt awake and alert. No acute events. Objective Last 24 Hour Vital Signs Date Time Temp Pulse Resp B/P (MAP) Pulse Ox O2 Delivery O2 Flow Rate FiO2 06/29/18 12:58 84 06/29/18 12:00 Room Air 06/29/18 12:00 97.7 82 20 120/69 (86) 97 97.7 06/29/18 08:00 Room Air 06/29/18 08:00 98.2 85 20 124/47 (72) 95 98.2 06/29/18 08:00 74 06/29/18 04:00 98.4 87 20 130/61 (84) 95 98.4 06/29/18 04:00 84 06/29/18 04:00 Room Air 06/29/18 00:00 Room Air 06/29/18 00:00 88 06/29/18 00:00 98.3 88 20 125/88 (100) 92 98.3 06/28/18 20:00 88 06/28/18 20:00 Room Air 06/28/18 20:00 99.5 94 20 126/60 (82) 91 99.5 06/28/18 16:10 95 06/28/18 16:00 99.7 93 20 131/67 (88) 94 99.7 06/28/18 16:00 Room Air Intake and Output 06/28/18 06/29/18 19:00 07:00 Intake Total 1205 ml 925 ml Output Total 750 ml 1600 ml Balance 455 ml -675 ml Intake Oral 1020 ml IV Total 185 ml 925 ml Output Urine Total 750 ml 1600 ml # Voids 1 1 # Bowel Movements 4 3 Laboratory Tests 06/29/18 11:45: C-Reactive Protein, Quantitative 3.3H Height (Feet): 5 Height (Inches): 5.00 Weight (Pounds): 218 General Appearance: no apparent distress EENT: PERRL/EOMI Neck: normal alignment Cardiovascular: normal peripheral pulses Respiratory/Chest: no respiratory distress Abdomen: soft Ashvin Martin MD Jun 29, 2018 14:26
[2018-06-29 16:00] VITALS: BP 137/51
[2018-06-29] MEDS ORDERED: Acetaminophen 500mg (ES) tab ORAL PRN (16:15)
[2018-06-29] MEDS ORDERED: 1/2 NS 1000ml IV ONE (17:15)
[2018-06-29] MEDS ORDERED: Tubing IV Secondary IV ONE (17:15)
--- NOTE | 2018-06-29 17:33 | General Progress Note ---
Assessment/Plan Problem List: (1) Dehydration ICD Codes: E86.0 - Dehydration SNOMED: 17459292 (2) GI bleed ICD Codes: K92.2 - Gastrointestinal hemorrhage, unspecified SNOMED: 95827838 (3) Muscle weakness (generalized) ICD Codes: M62.81 - Muscle weakness (generalized) SNOMED: 94186397, 97251688 (4) Abdominal pain ICD Codes: R10.9 - Unspecified abdominal pain SNOMED: 97386974 Qualifiers: Qualified Codes: R10.84 - Generalized abdominal pain (5) Bloody emesis ICD Codes: K92.0 - Hematemesis SNOMED: 1298982 (6) Coffee ground emesis ICD Codes: K92.0 - Hematemesis SNOMED: 08248028, 243959077 (7) Diabetes mellitus ICD Codes: E11.9 - Type 2 diabetes mellitus without complications SNOMED: 63589025 Status: progressing Assessment/Plan no gi bleed today check h/h reviewed chart and labs Subjective Constitutional: Reports: no symptoms Allergies: Coded Allergies: PENICILLINS (Unverified Allergy, Unknown, 06/25/18) Objective Last 24 Hour Vital Signs Date Time Temp Pulse Resp B/P (MAP) Pulse Ox O2 Delivery O2 Flow Rate FiO2 06/29/18 16:00 98.2 82 19 137/51 (79) 94 98.2 06/29/18 12:58 84 06/29/18 12:00 Room Air 06/29/18 12:00 97.7 82 20 120/69 (86) 97 97.7 06/29/18 08:00 Room Air 06/29/18 08:00 98.2 85 20 124/47 (72) 95 98.2 06/29/18 08:00 74 06/29/18 04:00 98.4 87 20 130/61 (84) 95 98.4 06/29/18 04:00 84 06/29/18 04:00 Room Air 06/29/18 00:00 Room Air 06/29/18 00:00 88 06/29/18 00:00 98.3 88 20 125/88 (100) 92 98.3 06/28/18 20:00 88 06/28/18 20:00 Room Air 06/28/18 20:00 99.5 94 20 126/60 (82) 91 99.5 Intake and Output 06/28/18 06/29/18 19:00 07:00 Intake Total 1205 ml 925 ml Output Total 750 ml 1600 ml Balance 455 ml -675 ml Intake Oral 1020 ml IV Total 185 ml 925 ml Output Urine Total 750 ml 1600 ml # Voids 1 1 # Bowel Movements 4 3 Laboratory Tests 06/29/18 11:45: C-Reactive Protein, Quantitative 3.3H Height (Feet): 5 Height (Inches): 5.00 Weight (Pounds): 218 Cardiovascular: normal rate Respiratory/Chest: lungs clear Abdomen: soft Isabel Miller MD Jun 29, 2018 17:33
[2018-06-29 20:00] VITALS: BP 148/58
[2018-06-30] VITALS: BP 105/54
[2018-06-30 04:00] VITALS: BP 123/63
[2018-06-30] MEDS: NovoLOG Insulin Flexpen SUBQ SCH ×4 (06:27→21:22)
[2018-06-30 06:28] LABS: HEMATOCRIT 23.1 % (37.0-47.0); HEMOGLOBIN 7.4 G/DL (12.0-16.0); MEAN CORPUSCULAR VOLUME 87 FL (80-99); PLATELET COUNT 200 K/UL (150-450); RED BLOOD COUNT 2.66 M/UL (4.20-5.40); RED CELL DISTRIBUTION WIDTH 19.1 % (11.6-14.8); WHITE BLOOD COUNT 9.9 K/UL (4.8-10.8)
[2018-06-30 07:08] LABS: ALANINE AMINOTRANSFERASE 40 U/L (12-78); ALBUMIN 2.5 G/DL (3.4-5.0); ALBUMIN/GLOBULIN RATIO 0.7 (1.0-2.7); ALKALINE PHOSPHATASE 110 U/L (46-116); ANION GAP 8 mmol/L (5-15); ASPARTATE AMINO TRANSFERASE 42 U/L (15-37); BILIRUBIN,TOTAL 0.5 MG/DL (0.2-1.0); BLOOD UREA NITROGEN 5 mg/dL (7-18); CALCIUM 7.7 MG/DL (8.5-10.1); CARBON DIOXIDE 27 MMOL/L (21-32); CHLORIDE 108 MMOL/L (98-107); CREATININE 0.7 MG/DL (0.55-1.30); PHOSPHORUS 2.2 MG/DL (2.5-4.9); POTASSIUM 3.2 MMOL/L (3.5-5.1); SODIUM 143 MMOL/L (136-145)
--- NOTE | 2018-06-30 07:20 | General Progress Note ---
Assessment/Plan Assessment/Plan Assessment - chronic abd pain - cirrhosis, possibly secondary to MEJIA - obesity - DM - UGIB due to varix, banded Recommendations - off sandostatin - off reglan - continue PPI BID - Transfusion per Heme - monitor H&H>>>stable -propanolol Subjective ROS Limited/Unobtainable: Yes Allergies: Coded Allergies: PENICILLINS (Unverified Allergy, Unknown, 06/25/18) Subjective no event over night Objective Last 24 Hour Vital Signs Date Time Temp Pulse Resp B/P (MAP) Pulse Ox O2 Delivery O2 Flow Rate FiO2 06/30/18 04:00 98.8 84 20 123/63 (83) 94 98.8 06/30/18 00:00 99.0 86 20 105/54 (71) 93 99.0 06/29/18 21:00 Room Air 06/29/18 20:00 98.2 90 20 148/58 (88) 96 98.2 06/29/18 16:00 98.2 82 19 137/51 (79) 94 98.2 06/29/18 12:58 84 06/29/18 12:00 Room Air 06/29/18 12:00 97.7 82 20 120/69 (86) 97 97.7 06/29/18 08:00 Room Air 06/29/18 08:00 98.2 85 20 124/47 (72) 95 98.2 06/29/18 08:00 74 Intake and Output 06/29/18 06/30/18 19:00 07:00 Intake Total 1680 ml 670 ml Output Total 1200 ml 800 ml Balance 480 ml -130 ml Intake Oral 1180 ml 120 ml IV Total 500 ml 550 ml Output Urine Total 1200 ml 800 ml # Voids 1 4 # Bowel Movements 2 3 Laboratory Tests 06/29/18 11:45: C-Reactive Protein, Quantitative 3.3H 06/30/18 05:55: White Blood Count 9.9, Red Blood Count 2.66L, Hemoglobin 7.4L, Hematocrit 23.1L , Mean Corpuscular Volume 87, Mean Corpuscular Hemoglobin 28.0, Mean Corpuscular Hemoglobin Concent 32.2, Red Cell Distribution Width 19.1H, Platelet Count 200, Mean Platelet Volume 6.7, Neutrophils (%) (Auto) , Lymphocytes (%) (Auto) , Monocytes (%) (Auto) , Eosinophils (%) (Auto) , Basophils (%) (Auto) , Neutrophils % (Manual) [Pending], Lymphocytes % (Manual) [Pending], Platelet Estimate [Pending], Platelet Morphology [Pending], Sodium Level 143, Potassium Level 3.2L, Chloride Level 108H, Carbon Dioxide Level 27, Anion Gap 8, Blood Urea Nitrogen 5L, Creatinine 0.7, Estimat Glomerular Filtration Rate > 60, Glucose Level 230H, Uric Acid 4.0, Calcium Level 7.7L, Phosphorus Level 2.2L, Magnesium Level 1.8, Total Bilirubin 0.5, Aspartate Amino Transf (AST/SGOT) 42H, Alanine Aminotransferase (ALT/SGPT) 40, Alkaline Phosphatase 110, Pro-B-Type Natriuretic Peptide 119, Total Protein 5.9L, Albumin 2.5L, Globulin 3.4, Albumin/Globulin Ratio 0.7L Height (Feet): 5 Height (Inches): 5.00 Weight (Pounds): 218 General Appearance: no apparent distress EENT: normal ENT inspection Neck: supple Cardiovascular: normal rate Respiratory/Chest: decreased breath sounds Abdomen: normal bowel sounds, non tender, soft Extremities: non-tender Rohith Heath MD Jun 30, 2018 07:20
[2018-06-30 08:11] VITALS: BP 117/55
[2018-06-30] MEDS ORDERED: cefTRIAXone 1 GM in D5W 55 ML IVPB SCH (09:00)
[2018-06-30] MEDS: Pantoprazole Inj IVP SCH ×2 (09:02→21:12)
[2018-06-30] MEDS ORDERED: Potassium Phosphate 30 MM in NS 275 ML IV ONE (11:00)
--- NOTE | 2018-06-30 11:07 | Nephrology Progress Note ---
Assessment/Plan Problem List: (1) Dehydration (2) GI bleed (3) Abdominal pain (4) Diabetes mellitus Assessment GI bleed due to varices/ had endoscopy and banding Anemia Dehydration / GI bleed: leading to Azotemia DM PCN Allergy Plan K phos IV Hydrate- Monitor H&H transfuse as needed. Monitor Renal parameters IV Venofer Per orders Per GI Subjective ROS Limited/Unobtainable: No Constitutional: Reports: malaise Objective Objective Last 24 Hour Vital Signs Date Time Temp Pulse Resp B/P (MAP) Pulse Ox O2 Delivery O2 Flow Rate FiO2 06/30/18 08:11 98.8 83 20 117/55 (75) 94 98.8 06/30/18 04:00 98.8 84 20 123/63 (83) 94 98.8 06/30/18 00:00 99.0 86 20 105/54 (71) 93 99.0 06/29/18 21:00 Room Air 06/29/18 20:00 98.2 90 20 148/58 (88) 96 98.2 06/29/18 16:00 98.2 82 19 137/51 (79) 94 98.2 06/29/18 12:58 84 06/29/18 12:00 Room Air 06/29/18 12:00 97.7 82 20 120/69 (86) 97 97.7 Intake and Output 06/29/18 06/30/18 19:00 07:00 Intake Total 1680 ml 720 ml Output Total 1200 ml 800 ml Balance 480 ml -80 ml Intake Oral 1180 ml 120 ml IV Total 500 ml 600 ml Output Urine Total 1200 ml 800 ml # Voids 1 4 # Bowel Movements 2 3 Laboratory Tests 06/29/18 11:45: C-Reactive Protein, Quantitative 3.3H 06/30/18 05:55: White Blood Count 9.9, Red Blood Count 2.66L, Hemoglobin 7.4L, Hematocrit 23.1L , Mean Corpuscular Volume 87, Mean Corpuscular Hemoglobin 28.0, Mean Corpuscular Hemoglobin Concent 32.2, Red Cell Distribution Width 19.1H, Platelet Count 200, Mean Platelet Volume 6.7, Neutrophils (%) (Auto) , Lymphocytes (%) (Auto) , Monocytes (%) (Auto) , Eosinophils (%) (Auto) , Basophils (%) (Auto) , Differential Total Cells Counted 100, Neutrophils % ( Manual) 56, Lymphocytes % (Manual) 28, Monocytes % (Manual) 14H, Eosinophils % ( Manual) 2, Basophils % (Manual) 0, Band Neutrophils 0, Nucleated Red Blood Cells 2, Platelet Estimate Adequate, Platelet Morphology Normal, Polychromasia 2 +, Hypochromasia 1+, Anisocytosis 2+, Sodium Level 143, Potassium Level 3.2L, Chloride Level 108H, Carbon Dioxide Level 27, Anion Gap 8, Blood Urea Nitrogen 5L, Creatinine 0.7, Estimat Glomerular Filtration Rate > 60, Glucose Level 230H , Uric Acid 4.0, Calcium Level 7.7L, Phosphorus Level 2.2L, Magnesium Level 1.8 , Total Bilirubin 0.5, Aspartate Amino Transf (AST/SGOT) 42H, Alanine Aminotransferase (ALT/SGPT) 40, Alkaline Phosphatase 110, Pro-B-Type Natriuretic Peptide 119, Total Protein 5.9L, Albumin 2.5L, Globulin 3.4, Albumin /Globulin Ratio 0.7L Height (Feet): 5 Height (Inches): 5.00 Weight (Pounds): 218 General Appearance: no apparent distress Objective PE not changed Ryley Guadalupe MD Jun 30, 2018 11:07
[2018-06-30 11:52] VITALS: BP 135/60
--- NOTE | 2018-06-30 11:58 | Infectious Diseases Prog Note ---
Assessment/Plan Assessment/Plan A: Leukocytosis resolved Upper GI bleeding Esophageal Varices Anemia Cirrhosis DM P: discontinue Ceftriaxone Subjective ROS Limited/Unobtainable: Yes Constitutional: Reports: no symptoms HEENT: Reports: other - headache Respiratory: Reports: no symptoms Gastrointestinal/Abdominal: Reports: diarrhea Musculoskeletal: Reports: pain, other - left lower abdominal Allergies: Coded Allergies: PENICILLINS (Unverified Allergy, Unknown, 06/25/18) Objective Vital Signs Last 24 Hour Vital Signs Date Time Temp Pulse Resp B/P (MAP) Pulse Ox O2 Delivery O2 Flow Rate FiO2 06/30/18 11:52 98.2 81 20 135/60 (85) 95 98.2 06/30/18 08:11 98.8 83 20 117/55 (75) 94 98.8 06/30/18 04:00 98.8 84 20 123/63 (83) 94 98.8 06/30/18 00:00 99.0 86 20 105/54 (71) 93 99.0 06/29/18 21:00 Room Air 06/29/18 20:00 98.2 90 20 148/58 (88) 96 98.2 06/29/18 16:00 98.2 82 19 137/51 (79) 94 98.2 06/29/18 12:58 84 06/29/18 12:00 Room Air 06/29/18 12:00 97.7 82 20 120/69 (86) 97 97.7 Height (Feet): 5 Height (Inches): 5.00 Weight (Pounds): 218 Microbiology Date/Time Source Procedure Growth Status 06/28/18 02:45 Stool Stool Culture - Preliminary NORMAL FECAL JACI. Resulted Laboratory Tests Test 06/30/18 05:55 White Blood Count 9.9 K/UL (4.8-10.8) Red Blood Count 2.66 M/UL (4.20-5.40) L Hemoglobin 7.4 G/DL (12.0-16.0) L Hematocrit 23.1 % (37.0-47.0) L Mean Corpuscular Volume 87 FL (80-99) Mean Corpuscular Hemoglobin 28.0 PG (27.0-31.0) Mean Corpuscular Hemoglobin Concent 32.2 G/DL (32.0-36.0) Red Cell Distribution Width 19.1 % (11.6-14.8) H Platelet Count 200 K/UL (150-450) Mean Platelet Volume 6.7 FL (6.5-10.1) Neutrophils (%) (Auto) % (45.0-75.0) Lymphocytes (%) (Auto) % (20.0-45.0) Monocytes (%) (Auto) % (1.0-10.0) Eosinophils (%) (Auto) % (0.0-3.0) Basophils (%) (Auto) % (0.0-2.0) Differential Total Cells Counted 100 Neutrophils % (Manual) 56 % (45-75) Lymphocytes % (Manual) 28 % (20-45) Monocytes % (Manual) 14 % (1-10) H Eosinophils % (Manual) 2 % (0-3) Basophils % (Manual) 0 % (0-2) Band Neutrophils 0 % (0-8) Nucleated Red Blood Cells 2 /100 WBC Platelet Estimate Adequate Platelet Morphology Normal Polychromasia 2+ Hypochromasia 1+ Anisocytosis 2+ Sodium Level 143 MMOL/L (136-145) Potassium Level 3.2 MMOL/L (3.5-5.1) L Chloride Level 108 MMOL/L (98-107) H Carbon Dioxide Level 27 MMOL/L (21-32) Anion Gap 8 mmol/L (5-15) Blood Urea Nitrogen 5 mg/dL (7-18) L Creatinine 0.7 MG/DL (0.55-1.30) Estimat Glomerular Filtration Rate > 60 mL/min (>60) Glucose Level 230 MG/DL (74-106) H Uric Acid 4.0 MG/DL (2.6-7.2) Calcium Level 7.7 MG/DL (8.5-10.1) L Phosphorus Level 2.2 MG/DL (2.5-4.9) L Magnesium Level 1.8 MG/DL (1.8-2.4) Total Bilirubin 0.5 MG/DL (0.2-1.0) Aspartate Amino Transf (AST/SGOT) 42 U/L (15-37) H Alanine Aminotransferase (ALT/SGPT) 40 U/L (12-78) Alkaline Phosphatase 110 U/L (46-116) Pro-B-Type Natriuretic Peptide 119 pg/mL (0-125) Total Protein 5.9 G/DL (6.4-8.2) L Albumin 2.5 G/DL (3.4-5.0) L Globulin 3.4 g/dL Albumin/Globulin Ratio 0.7 (1.0-2.7) L Current Medications Medications (Trade) Dose Ordered Sig/Sushila Route PRN Reason Start Time Stop Time Status Last Admin Dose Admin Acetaminophen (Tylenol) 500 mg Q4H PRN ORAL Mild Pain/Temp > 100.5 06/29/18 16:15 07/25/18 16:14 Ceftriaxone Sodium 1 gm/ Dextrose 55 ml @ 110 mls/hr DAILY IVPB 06/30/18 09:00 07/04/18 08:59 06/30/18 09:02 Clonidine HCl (Catapres Tab) 0.1 mg Q6H PRN ORAL For High Blood Pressure 06/29/18 16:15 07/25/18 16:14 Dextrose (Dextrose 50%) 25 ml STAT PRN IV Hypoglycemia 06/29/18 16:15 07/28/18 16:14 Dextrose (Dextrose 50%) 50 ml STAT PRN IV Hypoglycemia 06/29/18 16:15 07/28/18 16:14 Insulin Aspart (NovoLOG) BEFORE MEALS AND HS SUBQ 06/29/18 16:30 07/28/18 17:29 06/30/18 06:27 Pantoprazole (Protonix) 40 mg EVERY 12 HOURS IVP 06/29/18 21:00 07/26/18 00:14 06/30/18 09:02 Potassium Phosphate 30 mm/ Sodium Chloride 285 ml @ 47.5 mls/hr ONCE ONCE IV 06/30/18 11:00 06/30/18 16:59 06/30/18 11:42 Propranolol HCl (Inderal) 10 mg Q8HR ORAL 06/30/18 14:00 07/30/18 13:59 Sodium Chloride 1,000 ml @ 50 mls/hr Q20H IV 06/29/18 16:15 07/25/18 08:19 06/29/18 17:01 Ignacio Damico MD Jun 30, 2018 11:58
[2018-06-30] MEDS: Propranolol 10mg tab ORAL SCH ×2 (13:09→21:13)
--- NOTE | 2018-06-30 13:10 | General Surgery Progress Note ---
General Surgery-Progress Note Subjective Symptoms: improved, pain absent, tolerating diet, passing flatus, BM Objective Last 24 Hour Vital Signs Date Time Temp Pulse Resp B/P (MAP) Pulse Ox O2 Delivery O2 Flow Rate FiO2 06/30/18 13:09 81 135/60 06/30/18 11:52 98.2 81 20 135/60 (85) 95 98.2 06/30/18 08:11 98.8 83 20 117/55 (75) 94 98.8 06/30/18 04:00 98.8 84 20 123/63 (83) 94 98.8 06/30/18 00:00 99.0 86 20 105/54 (71) 93 99.0 06/29/18 21:00 Room Air 06/29/18 20:00 98.2 90 20 148/58 (88) 96 98.2 06/29/18 16:00 98.2 82 19 137/51 (79) 94 98.2 I&O Intake and Output 06/29/18 06/30/18 19:00 07:00 Intake Total 1680 ml 720 ml Output Total 1200 ml 800 ml Balance 480 ml -80 ml Intake Oral 1180 ml 120 ml IV Total 500 ml 600 ml Output Urine Total 1200 ml 800 ml # Voids 1 4 # Bowel Movements 2 3 Drains: none Cardiovascular: RSR Respiratory: clear Abdomen: soft, flat, non-tender, present bowel sounds Extremities: no cyanosis Laboratory Tests Test 06/30/18 05:55 White Blood Count 9.9 K/UL (4.8-10.8) Red Blood Count 2.66 M/UL (4.20-5.40) L Hemoglobin 7.4 G/DL (12.0-16.0) L Hematocrit 23.1 % (37.0-47.0) L Mean Corpuscular Volume 87 FL (80-99) Mean Corpuscular Hemoglobin 28.0 PG (27.0-31.0) Mean Corpuscular Hemoglobin Concent 32.2 G/DL (32.0-36.0) Red Cell Distribution Width 19.1 % (11.6-14.8) H Platelet Count 200 K/UL (150-450) Mean Platelet Volume 6.7 FL (6.5-10.1) Neutrophils (%) (Auto) % (45.0-75.0) Lymphocytes (%) (Auto) % (20.0-45.0) Monocytes (%) (Auto) % (1.0-10.0) Eosinophils (%) (Auto) % (0.0-3.0) Basophils (%) (Auto) % (0.0-2.0) Differential Total Cells Counted 100 Neutrophils % (Manual) 56 % (45-75) Lymphocytes % (Manual) 28 % (20-45) Monocytes % (Manual) 14 % (1-10) H Eosinophils % (Manual) 2 % (0-3) Basophils % (Manual) 0 % (0-2) Band Neutrophils 0 % (0-8) Nucleated Red Blood Cells 2 /100 WBC Platelet Estimate Adequate Platelet Morphology Normal Polychromasia 2+ Hypochromasia 1+ Anisocytosis 2+ Sodium Level 143 MMOL/L (136-145) Potassium Level 3.2 MMOL/L (3.5-5.1) L Chloride Level 108 MMOL/L (98-107) H Carbon Dioxide Level 27 MMOL/L (21-32) Anion Gap 8 mmol/L (5-15) Blood Urea Nitrogen 5 mg/dL (7-18) L Creatinine 0.7 MG/DL (0.55-1.30) Estimat Glomerular Filtration Rate > 60 mL/min (>60) Glucose Level 230 MG/DL (74-106) H Uric Acid 4.0 MG/DL (2.6-7.2) Calcium Level 7.7 MG/DL (8.5-10.1) L Phosphorus Level 2.2 MG/DL (2.5-4.9) L Magnesium Level 1.8 MG/DL (1.8-2.4) Total Bilirubin 0.5 MG/DL (0.2-1.0) Aspartate Amino Transf (AST/SGOT) 42 U/L (15-37) H Alanine Aminotransferase (ALT/SGPT) 40 U/L (12-78) Alkaline Phosphatase 110 U/L (46-116) Pro-B-Type Natriuretic Peptide 119 pg/mL (0-125) Total Protein 5.9 G/DL (6.4-8.2) L Albumin 2.5 G/DL (3.4-5.0) L Globulin 3.4 g/dL Albumin/Globulin Ratio 0.7 (1.0-2.7) L Plan Problems: (1) Abdominal pain Assessment & Plan: abdominal discomfort likely from enteritis. CT with questionable cholecystitis HIDA Negative. no acute surgical intervention planned. will follow with recs. (2) GI bleed Assessment & Plan: coffee ground emesis. EGD with portal htn, barretts. and varices. diet as tolerated trend H/H - stable no acute surgical intervention planned outpatient follow up with her PCP and GI for monitoring and care PPI BID okay to d/c from surgical standpoint appreciate GI input will follow with recs. thank you for this consultation Erlin Miller Jun 30, 2018 13:10
--- NOTE | 2018-06-30 14:53 | General Progress Note ---
Assessment/Plan Problem List: (1) Dehydration ICD Codes: E86.0 - Dehydration SNOMED: 75577798 (2) GI bleed ICD Codes: K92.2 - Gastrointestinal hemorrhage, unspecified SNOMED: 68934917 (3) Muscle weakness (generalized) ICD Codes: M62.81 - Muscle weakness (generalized) SNOMED: 79217619, 29675797 (4) Abdominal pain ICD Codes: R10.9 - Unspecified abdominal pain SNOMED: 75221321 Qualifiers: Qualified Codes: R10.84 - Generalized abdominal pain (5) Bloody emesis ICD Codes: K92.0 - Hematemesis SNOMED: 4109769 (6) Coffee ground emesis ICD Codes: K92.0 - Hematemesis SNOMED: 41315177, 891143927 (7) Diabetes mellitus ICD Codes: E11.9 - Type 2 diabetes mellitus without complications SNOMED: 67957874 Status: progressing Assessment/Plan no gi bleed today check h/h dehydration improved anemia stablized no vomitting today Subjective ROS Limited/Unobtainable: Yes Allergies: Coded Allergies: PENICILLINS (Unverified Allergy, Unknown, 06/25/18) Objective Last 24 Hour Vital Signs Date Time Temp Pulse Resp B/P (MAP) Pulse Ox O2 Delivery O2 Flow Rate FiO2 06/30/18 13:09 81 135/60 06/30/18 11:52 98.2 81 20 135/60 (85) 95 98.2 06/30/18 09:00 Room Air 06/30/18 08:11 98.8 83 20 117/55 (75) 94 98.8 06/30/18 04:00 98.8 84 20 123/63 (83) 94 98.8 06/30/18 00:00 99.0 86 20 105/54 (71) 93 99.0 06/29/18 21:00 Room Air 06/29/18 20:00 98.2 90 20 148/58 (88) 96 98.2 06/29/18 16:00 98.2 82 19 137/51 (79) 94 98.2 Intake and Output 06/29/18 06/30/18 19:00 07:00 Intake Total 1680 ml 720 ml Output Total 1200 ml 800 ml Balance 480 ml -80 ml Intake Oral 1180 ml 120 ml IV Total 500 ml 600 ml Output Urine Total 1200 ml 800 ml # Voids 1 4 # Bowel Movements 2 3 Laboratory Tests 06/30/18 05:55: White Blood Count 9.9, Red Blood Count 2.66L, Hemoglobin 7.4L, Hematocrit 23.1L , Mean Corpuscular Volume 87, Mean Corpuscular Hemoglobin 28.0, Mean Corpuscular Hemoglobin Concent 32.2, Red Cell Distribution Width 19.1H, Platelet Count 200, Mean Platelet Volume 6.7, Neutrophils (%) (Auto) , Lymphocytes (%) (Auto) , Monocytes (%) (Auto) , Eosinophils (%) (Auto) , Basophils (%) (Auto) , Differential Total Cells Counted 100, Neutrophils % ( Manual) 56, Lymphocytes % (Manual) 28, Monocytes % (Manual) 14H, Eosinophils % ( Manual) 2, Basophils % (Manual) 0, Band Neutrophils 0, Nucleated Red Blood Cells 2, Platelet Estimate Adequate, Platelet Morphology Normal, Polychromasia 2 +, Hypochromasia 1+, Anisocytosis 2+, Sodium Level 143, Potassium Level 3.2L, Chloride Level 108H, Carbon Dioxide Level 27, Anion Gap 8, Blood Urea Nitrogen 5L, Creatinine 0.7, Estimat Glomerular Filtration Rate > 60, Glucose Level 230H , Uric Acid 4.0, Calcium Level 7.7L, Phosphorus Level 2.2L, Magnesium Level 1.8 , Total Bilirubin 0.5, Aspartate Amino Transf (AST/SGOT) 42H, Alanine Aminotransferase (ALT/SGPT) 40, Alkaline Phosphatase 110, Pro-B-Type Natriuretic Peptide 119, Total Protein 5.9L, Albumin 2.5L, Globulin 3.4, Albumin /Globulin Ratio 0.7L Height (Feet): 5 Height (Inches): 5.00 Weight (Pounds): 218 Cardiovascular: normal rate Respiratory/Chest: lungs clear Abdomen: soft Isabel Miller MD Jun 30, 2018 14:53
[2018-06-30 15:52] VITALS: BP 122/61
[2018-06-30 20:00] VITALS: BP 102/66
[2018-07-01] VITALS: BP 133/56
[2018-07-01 04:00] VITALS: BP 124/58
[2018-07-01] MEDS: Propranolol 10mg tab ORAL SCH ×2 (06:26→13:11)
[2018-07-01] MEDS: NovoLOG Insulin Flexpen SUBQ SCH ×2 (06:37→13:12)
[2018-07-01 08:00] VITALS: BP 123/51
[2018-07-01 08:40] LABS: HEMATOCRIT 24.3 % (37.0-47.0); HEMOGLOBIN 7.9 G/DL (12.0-16.0); MEAN CORPUSCULAR VOLUME 88 FL (80-99); PLATELET COUNT 232 K/UL (150-450); RED BLOOD COUNT 2.77 M/UL (4.20-5.40); RED CELL DISTRIBUTION WIDTH 19.8 % (11.6-14.8); WHITE BLOOD COUNT 8.8 K/UL (4.8-10.8)
[2018-07-01 08:48] LABS: ANION GAP 8 mmol/L (5-15); BLOOD UREA NITROGEN 9 mg/dL (7-18); CALCIUM 7.8 MG/DL (8.5-10.1); CARBON DIOXIDE 27 MMOL/L (21-32); CHLORIDE 106 MMOL/L (98-107); CREATININE 0.7 MG/DL (0.55-1.30); POTASSIUM 3.5 MMOL/L (3.5-5.1); SODIUM 141 MMOL/L (136-145)
[2018-07-01] MEDS: Pantoprazole Inj IVP SCH (09:13)
--- NOTE | 2018-07-01 10:19 | General Surgery Progress Note ---
General Surgery-Progress Note Subjective Symptoms: improved, pain absent, tolerating diet, passing flatus, BM Objective Last 24 Hour Vital Signs Date Time Temp Pulse Resp B/P (MAP) Pulse Ox O2 Delivery O2 Flow Rate FiO2 07/01/18 08:30 Room Air 07/01/18 08:00 99.3 77 18 123/51 (75) 98 99.3 07/01/18 06:26 73 124/58 07/01/18 04:00 98.9 73 20 124/58 (80) 96 98.9 07/01/18 00:00 99.0 71 20 133/56 (81) 96 99.0 06/30/18 21:13 78 102/66 06/30/18 21:00 Room Air 06/30/18 20:00 99.3 78 20 102/66 (78) 95 99.3 06/30/18 15:52 99.7 81 20 122/61 (81) 95 99.7 06/30/18 13:09 81 135/60 06/30/18 11:52 98.2 81 20 135/60 (85) 95 98.2 I&O Intake and Output 06/30/18 07/01/18 19:00 07:00 Intake Total 1020.0 ml 200 ml Output Total 900 ml 600 ml Balance 120.0 ml -400 ml Intake Oral 720 ml IV Total 300.0 ml 200 ml Output Urine Total 900 ml 600 ml # Bowel Movements 2 Drains: none Cardiovascular: RSR Respiratory: clear Abdomen: soft, non-tender, present bowel sounds Extremities: no cyanosis Laboratory Tests Test 07/01/18 08:00 White Blood Count 8.8 K/UL (4.8-10.8) Red Blood Count 2.77 M/UL (4.20-5.40) L Hemoglobin 7.9 G/DL (12.0-16.0) L Hematocrit 24.3 % (37.0-47.0) L Mean Corpuscular Volume 88 FL (80-99) Mean Corpuscular Hemoglobin 28.5 PG (27.0-31.0) Mean Corpuscular Hemoglobin Concent 32.5 G/DL (32.0-36.0) Red Cell Distribution Width 19.8 % (11.6-14.8) H Platelet Count 232 K/UL (150-450) Mean Platelet Volume 6.6 FL (6.5-10.1) Neutrophils (%) (Auto) % (45.0-75.0) Lymphocytes (%) (Auto) % (20.0-45.0) Monocytes (%) (Auto) % (1.0-10.0) Eosinophils (%) (Auto) % (0.0-3.0) Basophils (%) (Auto) % (0.0-2.0) Differential Total Cells Counted 100 Neutrophils % (Manual) 57 % (45-75) Lymphocytes % (Manual) 32 % (20-45) Monocytes % (Manual) 10 % (1-10) Eosinophils % (Manual) 1 % (0-3) Basophils % (Manual) 0 % (0-2) Band Neutrophils 0 % (0-8) Platelet Estimate Adequate Platelet Morphology Normal Polychromasia 2+ Hypochromasia 1+ Anisocytosis 2+ Sodium Level 141 MMOL/L (136-145) Potassium Level 3.5 MMOL/L (3.5-5.1) Chloride Level 106 MMOL/L (98-107) Carbon Dioxide Level 27 MMOL/L (21-32) Anion Gap 8 mmol/L (5-15) Blood Urea Nitrogen 9 mg/dL (7-18) Creatinine 0.7 MG/DL (0.55-1.30) Estimat Glomerular Filtration Rate > 60 mL/min (>60) Glucose Level 240 MG/DL (74-106) H Calcium Level 7.8 MG/DL (8.5-10.1) L Plan Problems: (1) Abdominal pain Assessment & Plan: abdominal discomfort likely from enteritis. CT with questionable cholecystitis HIDA Negative. no acute surgical intervention planned. will follow with recs. (2) GI bleed Assessment & Plan: coffee ground emesis. EGD with portal htn, barretts. and varices. diet as tolerated trend H/H - stable no acute surgical intervention planned outpatient follow up with her PCP and GI for monitoring and care PPI BID okay to d/c from surgical standpoint appreciate GI input will follow with recs. thank you for this consultation Erlin Miller Jul 01, 2018 10:19
--- NOTE | 2018-07-01 11:23 | General Progress Note ---
Assessment/Plan Assessment/Plan Assessment - chronic abd pain - cirrhosis, possibly secondary to MEJIA - obesity - DM - UGIB due to varix, banded - ASA on hold - no h/o CVA, DE, or stent Recommendations - d/c planning - PPI qd x 2 mo - Patient advised to f/u with PMD in 1 week - Patient advised she needs to be assigned to GI MD w/i network [employer] - Patient advised to discuss risk benefit of ASA use with PMD. Hold for now. - Patient advised to continue BID Inderal Subjective Allergies: Coded Allergies: PENICILLINS (Unverified Allergy, Unknown, 06/25/18) Subjective pain better tolerating solids no bleeding stools brown Objective Last 24 Hour Vital Signs Date Time Temp Pulse Resp B/P (MAP) Pulse Ox O2 Delivery O2 Flow Rate FiO2 07/01/18 08:30 Room Air 07/01/18 08:00 99.3 77 18 123/51 (75) 98 99.3 07/01/18 06:26 73 124/58 07/01/18 04:00 98.9 73 20 124/58 (80) 96 98.9 07/01/18 00:00 99.0 71 20 133/56 (81) 96 99.0 06/30/18 21:13 78 102/66 06/30/18 21:00 Room Air 06/30/18 20:00 99.3 78 20 102/66 (78) 95 99.3 06/30/18 15:52 99.7 81 20 122/61 (81) 95 99.7 06/30/18 13:09 81 135/60 06/30/18 11:52 98.2 81 20 135/60 (85) 95 98.2 Intake and Output 06/30/18 07/01/18 19:00 07:00 Intake Total 1020.0 ml 200 ml Output Total 900 ml 600 ml Balance 120.0 ml -400 ml Intake Oral 720 ml IV Total 300.0 ml 200 ml Output Urine Total 900 ml 600 ml # Bowel Movements 2 Laboratory Tests 07/01/18 08:00: White Blood Count 8.8, Red Blood Count 2.77L, Hemoglobin 7.9L, Hematocrit 24.3L , Mean Corpuscular Volume 88, Mean Corpuscular Hemoglobin 28.5, Mean Corpuscular Hemoglobin Concent 32.5, Red Cell Distribution Width 19.8H, Platelet Count 232, Mean Platelet Volume 6.6, Neutrophils (%) (Auto) , Lymphocytes (%) (Auto) , Monocytes (%) (Auto) , Eosinophils (%) (Auto) , Basophils (%) (Auto) , Differential Total Cells Counted 100, Neutrophils % ( Manual) 57, Lymphocytes % (Manual) 32, Monocytes % (Manual) 10, Eosinophils % ( Manual) 1, Basophils % (Manual) 0, Band Neutrophils 0, Platelet Estimate Adequate, Platelet Morphology Normal, Polychromasia 2+, Hypochromasia 1+, Anisocytosis 2+, Sodium Level 141, Potassium Level 3.5, Chloride Level 106, Carbon Dioxide Level 27, Anion Gap 8, Blood Urea Nitrogen 9, Creatinine 0.7, Estimat Glomerular Filtration Rate > 60, Glucose Level 240H, Calcium Level 7.8L Height (Feet): 5 Height (Inches): 5.00 Weight (Pounds): 218 Objective WDWN NCAT supple CTA RRR Soft NT ND no edema Ct Deras MD Jul 01, 2018 11:23
--- NOTE | 2018-07-01 11:25 | Infectious Diseases Prog Note ---
Assessment/Plan Assessment/Plan A: Leukocytosis resolved Upper GI bleeding Esophageal Varices Anemia Cirrhosis DM P: Observe off antibiotic agree with discharge to home Subjective ROS Limited/Unobtainable: No Constitutional: Reports: no symptoms Respiratory: Reports: no symptoms Gastrointestinal/Abdominal: Reports: no symptoms Musculoskeletal: Reports: pain Allergies: Coded Allergies: PENICILLINS (Unverified Allergy, Unknown, 06/25/18) Objective Vital Signs Last 24 Hour Vital Signs Date Time Temp Pulse Resp B/P (MAP) Pulse Ox O2 Delivery O2 Flow Rate FiO2 07/01/18 08:30 Room Air 07/01/18 08:00 99.3 77 18 123/51 (75) 98 99.3 07/01/18 06:26 73 124/58 07/01/18 04:00 98.9 73 20 124/58 (80) 96 98.9 07/01/18 00:00 99.0 71 20 133/56 (81) 96 99.0 06/30/18 21:13 78 102/66 06/30/18 21:00 Room Air 06/30/18 20:00 99.3 78 20 102/66 (78) 95 99.3 06/30/18 15:52 99.7 81 20 122/61 (81) 95 99.7 06/30/18 13:09 81 135/60 06/30/18 11:52 98.2 81 20 135/60 (85) 95 98.2 Height (Feet): 5 Height (Inches): 5.00 Weight (Pounds): 218 General Appearance: no acute distress HEENT: mucous membranes moist Respiratory/Chest: lungs clear Cardiovascular: normal rate Abdomen: soft, non tender Extremities: no edema Neurologic/Psychiatric: alert, oriented x 3, responsive Laboratory Tests Test 07/01/18 08:00 White Blood Count 8.8 K/UL (4.8-10.8) Red Blood Count 2.77 M/UL (4.20-5.40) L Hemoglobin 7.9 G/DL (12.0-16.0) L Hematocrit 24.3 % (37.0-47.0) L Mean Corpuscular Volume 88 FL (80-99) Mean Corpuscular Hemoglobin 28.5 PG (27.0-31.0) Mean Corpuscular Hemoglobin Concent 32.5 G/DL (32.0-36.0) Red Cell Distribution Width 19.8 % (11.6-14.8) H Platelet Count 232 K/UL (150-450) Mean Platelet Volume 6.6 FL (6.5-10.1) Neutrophils (%) (Auto) % (45.0-75.0) Lymphocytes (%) (Auto) % (20.0-45.0) Monocytes (%) (Auto) % (1.0-10.0) Eosinophils (%) (Auto) % (0.0-3.0) Basophils (%) (Auto) % (0.0-2.0) Differential Total Cells Counted 100 Neutrophils % (Manual) 57 % (45-75) Lymphocytes % (Manual) 32 % (20-45) Monocytes % (Manual) 10 % (1-10) Eosinophils % (Manual) 1 % (0-3) Basophils % (Manual) 0 % (0-2) Band Neutrophils 0 % (0-8) Platelet Estimate Adequate Platelet Morphology Normal Polychromasia 2+ Hypochromasia 1+ Anisocytosis 2+ Sodium Level 141 MMOL/L (136-145) Potassium Level 3.5 MMOL/L (3.5-5.1) Chloride Level 106 MMOL/L (98-107) Carbon Dioxide Level 27 MMOL/L (21-32) Anion Gap 8 mmol/L (5-15) Blood Urea Nitrogen 9 mg/dL (7-18) Creatinine 0.7 MG/DL (0.55-1.30) Estimat Glomerular Filtration Rate > 60 mL/min (>60) Glucose Level 240 MG/DL (74-106) H Calcium Level 7.8 MG/DL (8.5-10.1) L Current Medications Medications (Trade) Dose Ordered Sig/Sushila Route PRN Reason Start Time Stop Time Status Last Admin Dose Admin Acetaminophen (Tylenol) 500 mg Q4H PRN ORAL Mild Pain/Temp > 100.5 06/29/18 16:15 07/25/18 16:14 Clonidine HCl (Catapres Tab) 0.1 mg Q6H PRN ORAL For High Blood Pressure 06/29/18 16:15 07/25/18 16:14 Dextrose (Dextrose 50%) 25 ml STAT PRN IV Hypoglycemia 06/29/18 16:15 07/28/18 16:14 Dextrose (Dextrose 50%) 50 ml STAT PRN IV Hypoglycemia 06/29/18 16:15 07/28/18 16:14 Insulin Aspart (NovoLOG) BEFORE MEALS AND HS SUBQ 06/29/18 16:30 07/28/18 17:29 07/01/18 06:37 Pantoprazole (Protonix) 40 mg EVERY 12 HOURS IVP 06/29/18 21:00 07/26/18 00:14 07/01/18 09:13 Propranolol HCl (Inderal) 10 mg Q8HR ORAL 06/30/18 14:00 07/30/18 13:59 07/01/18 06:26 Sodium Chloride 1,000 ml @ 50 mls/hr Q20H IV 06/29/18 16:15 07/25/18 08:19 07/01/18 09:13 Ignacio Damico MD Jul 01, 2018 11:25
[2018-07-01 12:00] VITALS: BP 137/59
--- NOTE | 2018-07-01 12:12 | Nephrology Progress Note ---
Assessment/Plan Problem List: (1) Dehydration (2) GI bleed (3) Abdominal pain (4) Diabetes mellitus Assessment GI bleed due to varices/ had endoscopy and banding Anemia Dehydration / GI bleed: leading to Azotemia DM PCN Allergy Plan K phos IV Hydrate- Monitor H&H transfuse as needed. Monitor Renal parameters IV Venofer Per orders Per GI Subjective ROS Limited/Unobtainable: No Objective Objective Last 24 Hour Vital Signs Date Time Temp Pulse Resp B/P (MAP) Pulse Ox O2 Delivery O2 Flow Rate FiO2 07/01/18 08:30 Room Air 07/01/18 08:00 99.3 77 18 123/51 (75) 98 99.3 07/01/18 06:26 73 124/58 07/01/18 04:00 98.9 73 20 124/58 (80) 96 98.9 07/01/18 00:00 99.0 71 20 133/56 (81) 96 99.0 06/30/18 21:13 78 102/66 06/30/18 21:00 Room Air 06/30/18 20:00 99.3 78 20 102/66 (78) 95 99.3 06/30/18 15:52 99.7 81 20 122/61 (81) 95 99.7 06/30/18 13:09 81 135/60 Intake and Output 06/30/18 07/01/18 19:00 07:00 Intake Total 1020.0 ml 200 ml Output Total 900 ml 600 ml Balance 120.0 ml -400 ml Intake Oral 720 ml IV Total 300.0 ml 200 ml Output Urine Total 900 ml 600 ml # Bowel Movements 2 Laboratory Tests 07/01/18 08:00: White Blood Count 8.8, Red Blood Count 2.77L, Hemoglobin 7.9L, Hematocrit 24.3L , Mean Corpuscular Volume 88, Mean Corpuscular Hemoglobin 28.5, Mean Corpuscular Hemoglobin Concent 32.5, Red Cell Distribution Width 19.8H, Platelet Count 232, Mean Platelet Volume 6.6, Neutrophils (%) (Auto) , Lymphocytes (%) (Auto) , Monocytes (%) (Auto) , Eosinophils (%) (Auto) , Basophils (%) (Auto) , Differential Total Cells Counted 100, Neutrophils % ( Manual) 57, Lymphocytes % (Manual) 32, Monocytes % (Manual) 10, Eosinophils % ( Manual) 1, Basophils % (Manual) 0, Band Neutrophils 0, Platelet Estimate Adequate, Platelet Morphology Normal, Polychromasia 2+, Hypochromasia 1+, Anisocytosis 2+, Sodium Level 141, Potassium Level 3.5, Chloride Level 106, Carbon Dioxide Level 27, Anion Gap 8, Blood Urea Nitrogen 9, Creatinine 0.7, Estimat Glomerular Filtration Rate > 60, Glucose Level 240H, Calcium Level 7.8L Height (Feet): 5 Height (Inches): 5.00 Weight (Pounds): 218 General Appearance: no apparent distress Objective PE not changed Ryley Guadalupe MD Jul 01, 2018 12:12
[2018-07-01 13:11] VITALS: BP 137/59
[2018-07-01] MEDS ORDERED: PRILOSEC OTC20 MG ORAL (14:36)
[2018-07-01] MEDS ORDERED: Tubing IV Secondary IV ONE (15:54)
[2018-07-01] MEDS ORDERED: 1/2 NS 1000ml IV ONE (15:54)
--- NOTE | 2018-07-03 15:03 | Discharge Summary ---
Discharge Summary Discharge Summary _ DATE OF ADMISSION: 06/25/2018 DATE OF DISCHARGE: 07/01/2018 REASON FOR ADMISSION: 62 years old female with past medical history significant for diabetes mellitus, hypertension, presented with increased abdominal discomfort , dizziness and lightheadedness. Patient reported burning sensation in her upper abdomen. Patient reported coffee-ground emesis. She denied diarrhea. No fever, no chills. No chest pain or shortness of breath. Upon evaluation in emergency room vital signs revealed elevated blood pressure 180/100. Otherwise stable pulse oximetry on room air ,no fever ,stable heart rate and respiratory rate. Laboratory workup revealed no leukocytosis ,hemoglobin 11.7 ,hematocrit 36.9. BUN 23 creatinine 0.7 AST 50 ALT 47 , lipase elevated -442. Urinalysis without evidence of UTI. Troponin negative ,EKG revealed sinus rhythm, no acute ischemic changes . INR 1.2 CT of the abdomen and pelvis revealed suggestion of wall thickening of the gastric antrum, proximal small bowel and ascending colon, suspicious for possible enterocolitis. Gallbladder wall without evidence of gallstones or bladder distention. Slight hepatic surface irregularity indicative of early cirrhotic changes. Patient admitted with diagnoses of upper GI bleeding, dehydration, abdominal pain, diabetes mellitus, hypertension, possible gastroenterocolitis as per imaging. CONSULTANTS: ID specialist Dr. Tabor GI specialist Dr. Deras mailhouse operator Dr. Guadalupe automation lead/oncologist Dr. Martin surgery Dr. Miller pain specialist Dr. Garrido [facility] COURSE: Patient admitted. Patient started on IV hydration. GI specialist closely followed. Patient started on Sandostatin drip and Protonix . Patient subsequently undergone next day, on - EGD with findings of on esophageal varices, status post banding 2 and biopsy of duodenum and antrum. Biopsy of duodenum revealed mild chronic duodenitis. Biopsy of antrum revealed portal hypertensive gastropathy , but no H. pylori infection. Patient still kept nothing by mouth afterwards. w Workup for portal hypertension initiated . Sandostatin drip continued. Pain management provided as per pain specialist recommendations. Renal parameters and electrolytes were closely monitored. Electrolytes were corrected as needed. Nephrotoxins were avoided. No further episodes of GI bleeding. Abdominal ultrasound revealed increased hepatic echogenicity, consistent with hepatocellular disease, probably not fatty changes. Hepatic surface nodularity was suspicious for cirrhotic changes. HIDA scan was negative Patient slowly started on liquid diet as tolerated. Antiemetics were on board as needed. Hemoglobin and hematocrit were closely monitored with goal to keep hemoglobin above 7. Anemia workup was consistent with iron deficiency anemia. Patient was on IV Venofer. Aspirin was discontinued i setting of GI bleeding. In addition, patient had no history of GA ,CVA ,or stent placement. Prior to discharge, hemoglobin 7.9 and hematocrit 24.3. Renal parameters and electrolytes remained stable. Surgeon closely followed . Surgeon on concluded that there was no need for acute surgical intervention for this patient, and further concurred with GI recommendations. Infectious disease doctor initially followed. Patient developed leukocytosis on the next day after admission, with WBC 13.2. Stool culture was negative. Leukocytosis resolved the next day. ID specialist recommended to observe patient off antibiotics. TRUDY screen was positive. Blood pressure was managed with antihypertensive regimen and was brought under control. Blood sugar was managed with sliding scale of insulin. Hemoglobin A1c -7.6, not at goal yet. Patient needs tighter blood sugar control, to be done as outpatient with close monitoring with primary care provider. Engineer System Administrator followed. Per automation lead, leukocytosis was likely reactive due to bleeding . Anemia workup was consistent with iron deficiency anemia, ferritin level 44. Patient was on IV Venofer. Coagulopathy was due to cirrhosis and splenomegaly. Patient received 1 dose of vitamin K. Hepatitis panel was negative. GI specialist cleared patient for discharge. Patient to see primary care provider in one week and to be assigned to GI specialist via network as soon as possible. Patient to discuss with primary care provider risk and benefits of aspirin , but at this point GI specialist recommended to hold aspirin. Patient was advised to continue propranolol twice a day and Protonix daily for 2 months. Patient verbalized discharge instructions. Patient will need further workup as outpatient for possible autoimmune disorder given high positive ANAs screen FINAL DIAGNOSES: Upper GI bleeding secondary to esophageal varices , status post banding Cirrhosis probably secondary to an MEJIA Portal hypertensive gastropathy Dehydration secondary to GI bleeding Anemia due to GI bleeding Diabetes mellitus Obesity Hypertension Leukocytosis, likely reactive,- resolved Coagulopathy DISCHARGE MEDICATIONS: See Medication Reconciliation list. DISCHARGE INSTRUCTIONS: Patient was discharged home . Follow up with primary care provider in one week. Patient was discussed in detail with the GI specialist need to get the referral for GI specialist per insurance [employer]. Patient to continue Protonix daily for 2 months and Inderal twice a day. I have been assigned to dictate discharge summary for this account. I was not involved in the patient's management. Tiny Gay NP Jul 03, 2018 15:03
== END 2018-07-01 15:55 | disposition home or self-care (01) ==
LOC: EDBD 09:29 → EMR 10:08 → 4E 11:45 → EDBEDREQ 11:49 → 2W 23:00 → 4E 06-29 16:09
PROC: 06L38CZ Occlusion of Esophageal Vein with Extraluminal Device, Via Natural or Artificial Opening Endoscopic (ICD-10-PCS; 2018-06-26)
PROC: 0DB98ZX Excision of Duodenum, Via Natural or Artificial Opening Endoscopic, Diagnostic (ICD-10-PCS; principal; 2018-06-26 10:36)
PROC: 0DB78ZX Excision of Stomach, Pylorus, Via Natural or Artificial Opening Endoscopic, Diagnostic (ICD-10-PCS; 2018-06-26 10:36)
DX: K76.6 Portal hypertension (principal); I85.11 Secondary esophageal varices with bleeding; D68.4 Acquired coagulation factor deficiency; K74.60 Unspecified cirrhosis of liver; D50.0 Iron deficiency anemia secondary to blood loss (chronic); E11.9 Type 2 diabetes mellitus without complications; E66.9 Obesity, unspecified; E86.0 Dehydration; K75.81 Nonalcoholic steatohepatitis (NASH); K31.89 Other diseases of stomach and duodenum; R10.9 Unspecified abdominal pain; Z88.0 Allergy status to penicillin; Z79.84 Long term (current) use of oral hypoglycemic drugs; I10 Essential (primary) hypertension; M62.81 Muscle weakness (generalized); K52.9 Noninfective gastroenteritis and colitis, unspecified; K22.70 Barrett's esophagus without dysplasia
CPT/HCPCS: 36415; 74177; 76700; 78266; 80048; 80053; 80061; 81003; 82607; 82728; 82746; 82962; 83036; 83540; 83550; 83690; 83735; 83880; 84100; 84443; 84484; 84550; 85007; 85025; 85610; 85730; 86039; 86140; 86705; 86709; 86803; 86850; 86900; 86901; 87045; 87340; 94003; 94150; J1815; J2405; J2765